=== PATIENT | female | born 1940 | race Caucasian/White ===

== ENCOUNTER 2024-10-19 20:05 | Emergency (ER) | payer MEDICARE, SELFPAY ==
--- NOTE | ~2024-10-19 | CT_ITS ---
EXAMINATION: CT brain wo con DATE: 10/19/2024 21:39 INDICATION: ams . TECHNIQUE: Computed tomography (CT) of the head was performed without intravenous contrast. The mA wa s adjusted according to patient size. Iterative reconstruction technique was employed. The dose-lengt h product was 681.00 mGy-cm. COMPARISON: None. FINDINGS: No acute intracranial hemorrhage or extra-axial fluid collection. No hydrocephalus, mass, or herniation. No acute ischemic infarct. Unremarkable dural venous sinus attenuation. No acute osseous abnormality. The aerated spaces are clear. Moderate atrophy and chronic white matter change. Atherosclerotic intracranial calcification. Bilater al lens replacements. Bilateral basal ganglia calcification. IMPRESSION: No acute intracranial process. Reviewed, dictated and finalized at location K. [facility]
[2024-10-19 20:19] VITALS: BP 140/90; PULSE 89; RESP 14; TEMP 36.8; O2SAT 96
--- NOTE | 2024-10-19 21:28 | ECG_ITS ---
Test Date: 2024-10-19 21:52:19 Measurements Intervals [place] Rate: 71 P: 146 [place]: 117 QRS: -15 QRSD: 78 T: -31 QT: 390 QTc: 424 Interpretive Statements SINUS RHYTHM WITH SHORT [place] INTERVAL POSSIBLE LEFT ATRIAL ENLARGEMENT [-0.1mV P-WAVE IN V1/V2] NONSPECIFIC T-WAVE ABNORMALITY No previous ECG available for comparison Electronically Signed On 10-20-2024 14:52:15 USED [employer] by Morris Mitchell M.D.
[2024-10-19 22:31] LABS: Basophils Percent Auto 0.4 % (0.2-1.2); Eosinophils Absolute Auto 0.1 K/mm3 (0-0.3); Eosinophils Percent Auto 0.7 % (0-4.4); Hematocrit 46.7 % (37.0-47.0); Hemoglobin 15.4 g/dL (12.0-15.0); Immature Granulocyte Absolute 0.02 K/mm3 (0.00-0.031); Immature Granulocyte Percent A 0.2 % (0-0.5); Lymphocytes Absolute Auto 1.52 K/mm3 (0.9-3.2); Lymphocytes Percent Auto 18.2 % (18.3-44.2); Mean Corpuscular Hemoglobin 30.7 pg (26-34); Mean Platelet Volume 8.9 fl (7.4-10.4); Monocytes Percent Auto 11.6 % (2.6-8.5); Neutrophils Absolute Auto 5.8 K/mm3 (1.3-6.7); Neutrophils Percent Auto 68.9 % (45.5-73.1); Platelet Count Result 283 k/mm3 (150-375); Red Blood Count 5.02 M/mm3 (4.2-5.4); Red Cell Distribution Width 13.3 % (11.5-14.5); White Blood Count 8.4 K/mm3 (4.5-10.0)
[2024-10-19 22:37] LABS: Add Urine Microscopic? YES; Appearance Urine Cloudy (Clear); Bacteria Urine Rare /hpf; Bilirubin Urine Negative (Negative); Blood Urine Negative (Negative); Color Urine Yellow (Yellow); Glucose Urine UA Negative (Negative); Ketones Urine Negative (Negative); Leukocyte Esterase Ur 2+ LEU/UL (Negative); Nitrate Urine Negative (Negative); Non Pathogenic Casts 0-2; Protein Urine Negative (Negative); RBC Urine 0-2 /hpf (0-2); Specific Grav Ur 1.015 (1.001-1.035); Squamous Epithelial Cell Urine Few /hpf (Few); Urobilinogen Urine 0.2 mg/dL (<2.0)
[2024-10-19 22:41] LABS: Alanine Aminotransferase 18 U/L (6-35); Albumin Level 4.8 g/dL (3.5-5.1); Alkaline Phosphatase 67 U/L (38-126); Anion Gap 7 mmol/L (4-12); Aspartate Amino Transferase 23 U/L (14-36); Bilirubin,Total 0.6 mg/dL (0.2-1.3); Blood Urea Nitrogen 16 mg/dL (7-17); Calcium 9.7 mg/dL (8.4-10.2); Carbon Dioxide 28 mmol/L (22-30); Chloride 104 mmol/L (98-107); Estimated CRCL calculation 40 ml/min; Estimated Glomerular Filt Rate > 60; Glucose 120 mg/dL (65-110); Magnesium 2.1 mg/dL (1.6-2.3); Sodium 139 mmol/L (137-145)
--- NOTE | 2024-10-19 23:30 | ED.GENADULT ---
HPI - General Adult General Chief complaint: Unspecified Stated complaint: insomnia, medication problem Time Seen by Provider: 10/19/24 21:28 Source: patient and family Mode of arrival: ambulatory Limitations: no limitations History of Present Illness HPI narrative: Patient is an 84-year-old female presents the ED with report of trouble sleeping. Patient reports she has not slept much in the 3 days. Has been feeling increasingly anxious. Son at bedside confirmed this. Had difficulty sleeping a few weeks ago which resolved on its own. Patient does report that the only change in her routine that she can think of has been that her prescription for nortriptyline was accidentally prescribed as 50 mg instead of 10 mg. She had been taking 50 mg dose over the last few weeks without knowing. She denies any pain, focal weakness or numbness, dizziness, lightheadedness, nausea, vomiting, fevers, cough or cold symptoms, urinary complaints, vision changes. Review of Systems Review of Systems: All systems reviewed & are unremarkable except as noted in HPI. All systems reviewed & are unremarkable except as noted in HPI and below Exam Narrative: GENERAL: Elderly but well-appearing, non-toxic, in no acute distress. HEAD: Normocephalic, atraumatic. RESPIRATORY: Airway patent, respirations nonlabored. Clear to auscultation bilaterally, no rales, rhonchi, wheezing. CARDIOVASCULAR: Regular rate and rhythm without murmurs, rubs, or gallops. ABDOMINAL: Soft, nontender, nondistended. Normoactive BS. MUSCULOSKELETAL: Moves all extremities. No gross deformities. SKIN: Warm, dry, normal color. NEURO: A&O X3. Speech clear. Cranial nerves II-XII grossly intact. Steady gait. No ataxic movements. Focal deficits. Moves all extremities equally. PSYCHIATRIC: Mildly anxious and jittery appearing, normal interaction. Course Vital Signs Vital signs: Vital Signs Temperature 98.2 F 10/19/24 20:19 Pulse Rate 89 10/19/24 20:19 Respiratory Rate 14 10/19/24 20:19 Blood Pressure 140/90 10/19/24 20:19 Pulse Oximetry 96 10/19/24 20:19 Oxygen Delivery Room Air 10/19/24 20:19 Temperature 98.2 F 10/19/24 20:19 Pulse Rate 89 10/19/24 20:19 Respiratory Rate 14 10/19/24 20:19 Blood Pressure 140/90 10/19/24 20:19 Pulse Oximetry 96 10/19/24 20:19 Oxygen Delivery Room Air 10/19/24 20:19 Medical Decision Making MDM Narrative Medical decision making narrative: Patient presented to ED with difficulty sleeping over the last few days. Recently has been taking an increased dose of her nortriptyline on accident. Has history of difficulty sleeping in the past. AMS workup was initiated. Vital signs are stable. Patient is in no acute distress. She is neurologically intact. She is able to provide all information. Son confirms information. She does not appear confused, however is slightly anxious. There is no focal deficits on exam. Laboratory studies are unremarkable. No leukocytosis or anemia. Stable electrolytes. Stable kidney function. Normal LFTs. Urine is consistent with infection with 2+ leuk esterase, 11-20 white blood cell count. Sent for culture. Will treat. This is likely contributing to patient's change in mental status. EKG is nonischemic. CT brain without acute findings. Discussed lab and imaging findings, overall reassuring workup with patient and son. Given dose of Rocephin in the ED. Will discharge on Keflex. Will also re-prescribe nortriptyline to correct dose as this may also have been contributing to symptoms/insomnia. Will give patient a small dose of Valium prior to discharge to help with sleep/anxiety. Also discussed [id number] therapies to try. Advised patient to have very close follow-up with PCP for further evaluation. Discussed strict return precautions. Patient and family are in agreement with plan. They feel comfortable discharge home. D/C in stable condition. Medical Records Medical records reviewed: Yes I reviewed the external patient's medical records. Vital Signs Vital Signs: Vital Signs Temperature 98.2 F 10/19/24 20:19 Pulse Rate 89 10/19/24 20:19 Respiratory Rate 14 10/19/24 20:19 Blood Pressure 140/90 10/19/24 20:19 Pulse Oximetry 96 10/19/24 20:19 Oxygen Delivery Room Air 10/19/24 20:19 Temperature 98.2 F 10/19/24 20:19 Pulse Rate 89 10/19/24 20:19 Respiratory Rate 14 10/19/24 20:19 Blood Pressure 140/90 10/19/24 20:19 Pulse Oximetry 96 12/09/24 20:19 Oxygen Delivery Room Air 10/19/24 20:19 Lab Data Lab results reviewed: Yes I reviewed the patient's lab results. 10/19/24 22:20 10/19/24 22:20 Labs: Lab Results 10/19/24 Range/Units 22:20 WBC 8.4 (4.5-10.0) K/mm3 RBC 5.02 (4.2-5.4) M/mm3 Hgb 15.4 H (12.0-15.0) g/dL Hct 46.7 (37.0-47.0) % MCV 93.0 (80-100) fl MCH 30.7 (26-34) pg MCHC 33.0 (32-36) g/dl RDW 13.3 (11.5-14.5) % Plt Count 283 (150-375) k/mm3 MPV 8.9 (7.4-10.4) fl Immature Gran % (Auto) 0.2 (0-0.5) % Neut % (Auto) 68.9 (45.5-73.1) % Lymph % (Auto) 18.2 L (18.3-44.2) % [place] % (Auto) 11.6 H (2.6-8.5) % Eos % (Auto) 0.7 (0-4.4) % Baso % (Auto) 0.4 (0.2-1.2) % Lymph # (Auto) 1.52 (0.9-3.2) K/mm3 [place] # (Auto) 1.0 H (0.1-0.6) K/mm3 Eos # (Auto) 0.1 (0-0.3) K/mm3 Baso # (Auto) 0.0 (0.0-0.1) K/mm3 Abs Immat Gran (auto) 0.02 (0.00-0.031) K/mm3 Absolute Neuts (auto) 5.8 (1.3-6.7) K/mm3 Absolute Nucleated RBC 0.000 (0.0-0.012) K/mm3 Nucleated RBC % 0.0 (0.0-0.2) % Sodium 139 (137-145) mmol/L Potassium 4.0 (3.4-5.0) mmol/L Chloride 104 (98-107) mmol/L Carbon Dioxide 28 (22-30) mmol/L Anion Gap 7 (4-12) mmol/L BUN 16 (7-17) mg/dL Creatinine 0.70 (0.7-1.0) mg/dL Estim Creat Clear Calc 40 ml/min Estimated GFR > 60 (59 - ) Glucose 120 H (65-110) mg/dL Calcium 9.7 (8.4-10.2) mg/dL Magnesium 2.1 (1.6-2.3) mg/dL Total Bilirubin 0.6 (0.2-1.3) mg/dL AST 23 (14-36) U/L ALT 18 (6-35) U/L Alkaline Phosphatase 67 (38-126) U/L Total Protein 8.0 (6.3-8.2) g/dL Albumin 4.8 (3.5-5.1) g/dL Urine Color Yellow (Yellow) Urine Appearance Cloudy H (Clear) Urine pH 6.0 (5.0-9.0) Ur Specific [place] 1.015 (1.001-1.035) Urine Protein Negative (Negative) mg/dL Urine Glucose (UA) Negative (Negative) mg/dL Urine Ketones Negative (Negative) mg/dL Ur Blood (Man) Negative (Negative) Urine Nitrate Negative (Negative) Urine Bilirubin Negative (Negative) Urine Urobilinogen 0.2 (<2.0) mg/dL Leukocyte Esterase Rfl 2+ H (Negative) KELSIE/UL Urine RBC 0-2 (0-2) /hpf Urine WBC 11-20 H (0-3) /hpf Ur Squamous Epith Cells Few (Few) /hpf Urine Bacteria Rare /hpf Urine Casts 0-2 Imaging Data Attestation: I personally reviewed and interpreted this imaging study as follows: Radiologist's impression: ITS Impressions Head CT 10/19/24 21:44 IMPRESSION: No acute intracranial process. ECG Data EKG #1: Attestation: I personally reviewed and interpreted this ECG as follows: ECG completion date: 10/19/24 ECG completion time: 21:52 EKG Interpretation: normal rate (71), sinus rhythm, non-specific ST changes and other (short HI, some baseline artifact) Discharge Plan Discharge Clinical Impression: Trouble in sleeping Urinary tract infection Qualifiers: Urinary tract infection type: acute cystitis Hematuria presence: without hematuria Qualified Code(s): N30.00 - Acute cystitis without hematuria Patient Disposition: Home, Self-Care Condition: Stable Instructions: Antibiotic Form, Insomnia (ED), Urinary Tract Infection in Older Adults (ED) Additional Instructions: You were diagnosed with a urinary tract infection today. Take antibiotics as prescribed. Stay well hydrated. Recommend close follow-up with primary care doctor for further evaluation. Call office tomorrow to make follow up appointment. Discontinue Nortriptyline at 50mg dose. Resume taking 10mg dose as previously prescribed. You may try melatonin as needed for assistance with sleeping. Return to the ED if you experience worsening or severe symptoms, unable to keep down food or drink, persistent fevers, confusion, numbness or weakness in arm or leg, severe dizziness, chest pain, difficulty breathing, or any other symptoms of concern. Prescriptions: New cephalexin 500 mg capsule 500 mg PO Q6H 7 Days Qty: 28 0RF nortriptyline 10 mg capsule 10 mg PO DAILY Qty: 30 0RF Follow-up/Referrals: Latha,Nicolás White MD [Primary Care Provider] - Time of Disposition: 00:02
[2024-10-19] MEDS: Please add drug allergy info to patient profile. 1 EACH XX (23:42)
[2024-10-20] MEDS: diazePAM (*CRX) 2 MG TABLET PO (00:12)
[2024-10-20 00:17] VITALS: BP 114/61; PULSE 84; RESP 15; O2SAT 97
== END 2024-10-20 00:18 | disposition home or self-care (01) ==
PROVIDERS: Emergency Provider Physician Assistant; PCP Internal Medicine
DX: G47.00 Insomnia, unspecified (principal); N30.00 Acute cystitis without hematuria
CPT/HCPCS: 36415; 70450; 80053; 81001; 83735; 85025; 87086; 93005; 96365; 96375; 99284; A9270; J0696

== ENCOUNTER 2025-06-05 12:08 | Outpatient (CLI) | payer MEDICARE, SELFPAY ==
--- NOTE | ~2025-06-05 | CT_ITS ---
CT of the Abdomen and Pelvis: Indication: Hematuria Technique: 2.5 mm axial scans were obtained through the abdomen and pelvis prior to and following in travenous administration of 130 cc of Omnipaque 350. Dose reduction technique was used on this scan b y utilizing automated exposure control and iterative reconstruction technique. The dose-length produc t (DLP) was 708.30 mGy-cm. Findings: Scans through the lung bases demonstrate marked elevation of left hemidiaphragm versus lar ge diaphragmatic hernia. Small pericardial effusion present. Multiple hepatic cysts are present. There is mild dilatation of the main pancreatic neck which may be due to distortion of the pancreatic anatomy related to the large hiatal hernia/diaphragmatic elevati on. The spleen, gallbladder, adrenal glands are within normal limits. No evidence of aortic aneurysm . No lymphadenopathy. There is moderate left hydronephrosis with tapering at the UPJ region. There is mild right hydronephr osis with tapering at the UPJ region. There are probable parapelvic renal cysts bilaterally. No bowel obstruction or bowel wall thickening. There is no evidence to suggest acute appendicitis. Images through the pelvis were performed. Small amount of air present in the urinary bladder. 4.3 x 3 .5 cm left adnexal cyst present. No ascites. Impression: Moderate left hydronephrosis and mild right hydronephrosis, with tapering at the bilateral UPJ region s. 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 Bilatera l parapelvic renal cysts are also present. Small amount of air in urinary bladder, most likely related to recent instrumentation. Correlate clin ically. 4.3 x 3.5 cm left adnexal cyst. Marked elevation of left hemidiaphragm versus large left diaphragmatic hernia. Reviewed, dictated and finalized at location . Impression: Moderate left hydronephrosis and mild right hydronephrosis, with tapering at th e bilateral UPJ regions. 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 Bilateral parapelvic renal cysts are also p resent. Small amount of air in urinary bladder, most likely related to recent instrumen tation. Correlate clinically. 4.3 x 3.5 cm left adnexal cyst. Marked elevation of left hemidiaphragm versus large left diaphragmatic hernia.
--- OUTSIDE RECORDS SUMMARY | 2025-06-05 12:11 | XMS_ITS | Data Portability ---
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 Doing well. No post operative concerns. [email or web address] Not available 03/02/2025 17:48:45 04/08/2025 04/08/2025 I have reconciled the patient's medications post their discharge from inpatient facility. [email or web address] Not available 04/08/2025 14:14:15 Plan of Treatment Reminders Order Date Submit Date Provider Last Modified By Organization Details Last Modified Time Details Appointments Any 15 2024 03:15P M Arie Azul MD Not available Not available Not available Lab urinaly sis, dipstic k 2024 025 [email or web address] [facility] [address], [facility] [place], [address], 03/19/2025 16:28:51 urinaly sis complet e, reflex culture 2024 025 [facility], [address] [place] [address], [id number], 03/20/2025 11:31:09 Referral psychia trist referra l - Please call patient to yuniel chen appoint ment. Thank you. 2024 025 [email or web address] [facility], [address] [facility], [address], [place], [address], 05/04/2025 12:20:44 Procedures None recorde d. Surgeries None recorde d. Imaging XR, chest, 2 view 2024 [facility] (Radiology), [address] [facility], [place], [address], 02/05/2025 18:35:51 Medication Orders ramelte on 8 mg tablet 2024 025 [facility], [address] [place] [address], [id number], 05/05/2025 16:42:33 Macrobi d 100 mg capsule 2024 025 [facility], [address] [place] [address], [id number], 04/06/2025 10:24:00 Patient TargetsNo targets recorded. Patient Instructions Encounter Date Encounter Id Patient Instructions Last Modified By Organization Details Last Modified Time 03/19/2025 [id number] Increase water intake. Make sure to keep clean and dry. Change depends regularly. Always wipe front to back when using the restroom. [email or web address] Not available 03/19/2025 16:42:25 04/08/2025 [id number] Follow up appointment needed for hiatal hernia with Dr. Lombardo's team. (DC paperwork) Follow up post appointment must be made per discharge instructions. Discussed and given note in office as reminder. Reminder of follow up phone call scheduled April 24 at 2pm- reminder also given to patient/daughter on note. (DC paperwork) Discussed home health referral. Advised the importance of strength and exercise after hospital stay and for future ADLs. Patient refusal of services from home health as advised. Patient medications discussed with both daughters in office. Medications list updated to current regimen. Discussed healthy diet options and care. All questions and concerns addressed at this time. Thank you for your visit to our office today. We would like to request that you reach out to your referring or previous provider and request that they send us a Summary of Care in electronic form, so that we may have it on file in your medical record. At your visit, we had the medical records we needed to provide you with the best possible care; however, for insurance purposes, an electronic Summary of Care is beneficial. Thank you for your assistance in obtaining this information and we look forward to providing continued care to you. Please review your medication list from the Summary of Care for this visit. If there are any differences from what you are currently taking at home, please call us to discuss. [email or web address] Not available 04/09/2025 11:03:55 Homebound Status : Does not meet homebound status Required Home Health Services: none Durable Medical Equipment needed: NONE Billing Guidelines CPT code 34588- Transitional Care Management services with moderate medical decision complexity ([id number]-az-upii visit within 14 days of discharge). CPT code 91103- Transitional Care Management services with high medical decision complexity (uzbd-sq-fuwl visit within 7 days of discharge). [email or web address] Not available 04/09/2025 11:04:13 Reason for Referral Psychiatrist Referral for An xiety Please call patient to schedule an appointment. Thank you. Referring Physician: Arie Azul, Internal Medicine, Encounter Date: 02/02/2025 Results Created Date Observation Date Name Description Value Unit Range Abnormal Flag Note LastModifiedBy Organization Detail LastModifiedTime 03/19/20 25 03/19/2025 urina lysis , dipst ick Leukocytes (reference range: negative froylan/ l) Negati ve Not Available [facility] Internal [address] [facility] [place], [address], 03/19/2025 15:46:33 03/19/20 25 03/19/2025 urina lysis , dipst ick Nitrite (reference rage: negative mg/dl) negati ve Not Available [facility] Internal [facility] [address] [place], [address], 03/19/2025 15:46:33 03/19/20 25 03/19/2025 urina lysis , dipst ick Urobilinogen (reference range: 0.2-1 mg/dl) 0.2 Not Available [facility] [address] [place], [address], 03/19/2025 15:46:33 03/19/20 25 03/19/2025 urina lysis , dipst ick Protein (reference range: negative mg/dl) Trace Not Available [place] [address] [place], [address], 03/19/2025 15:46:33 03/19/20 25 03/19/2025 urina lysis , dipst ick pH (reference range: 5-7) 5.5 Not Available [place] [address] [place], [address], 03/19/2025 15:46:33 03/19/20 25 03/19/2025 urina lysis , dipst ick Blood (reference range: negative Zack/ l) Negati ve Not Available [address] [place], [address], 03/19/2025 15:46:33 03/19/20 25 03/19/2025 urina lysis , dipst ick Specific [place] (reference range: 1.005-1.030) 1.025 Not Available [place] [address] [place], [address], 03/19/2025 15:46:33 03/19/20 25 03/19/2025 urina lysis , dipst ick Ketone (reference range: negative mg/dl) Trace Not Available [place] [address] [place], [address], 03/19/2025 15:46:33 03/19/20 25 03/19/2025 urina lysis , dipst ick Bilirubin (reference range: negative mg/dl) Trace Not Available [facility] Internal [facility] [address] [place], [address], 03/19/2025 15:46:33 03/19/20 25 03/19/2025 urina lysis , dipst ick Glucose (reference range: negative mg/dl) Negati ve Not Available [facility] Internal [facility] [address] [place], [address], 03/19/2025 15:46:33 03/19/20 25 03/19/2025 urina lysis , dipst ick Appearance Cloudy Not Available [facility] [address] [place], [address], 03/19/2025 15:46:33 03/19/20 25 03/19/2025 urina lysis , dipst ick Color Yellow Not Available [facility] [address] [place], [address], 03/19/2025 15:46:33 02/06/20 25 02/05/2025 XR, chest , 2 view [facility] [address] [place] [address] Patien t Name: AILEEN EAST Access ion #: [id number] Sex: F : 1939 9 Dictat ed By: Simon kaur Attend ing Physic katarzyna: GARCÍA AZUL Orderi Physic katarzyna: GARCÍA AZUL ER Exam Date: 2024 16:54 PM Exam Name: XR CHEST 2V Admitt ing Diagno sis(es ): EXAM: XR CHEST 2V HISTOR Y: dyspne a, histor y of hiatal hernia COMPAR PATRICK: Upper images of CT scan of the abdome n dated 2021 TECHNI QUE: Fronta l and latera l views of the chest were perfor med. FINDIN GS: Large left diaphr agmati c hernia is re-ulises ntifie d, with loops of gas disten ded colon projec ting over the left lower chest. There is associ ated rightw bo shift of the heart and medias tinum, stable versus prior CT scan. There is associ ated left mid to lower lung scarri ng. No other infilt rates, pneumo thorax , pulmon addis edema, or pleura l effusi ons. The heart is not enlarg ed. No fractu res are identi fied about the bony thorax . IMPRES WILFRIDO: 1. Large left diaphr agmati c hernia with loops of colon in the left lower chest, left mid to lower lung scarri ng, and associ ated rightw bo shift of the heart and medias tinum. These findin gs are very simila r to that seen on CT scan dated 2021. 2. The right lung is clear. Electr onical ly Signed by: Simon kaur at 2024 17:33: 25 PM Page 1 [email or web address] [facility] (Imaging) [address] [place], [address], 02/09/2025 15:46:36 04/28/20 25 04/27/2025 compl ete PFT w/ post [facility] hodil ator dre metry * No observ ation record ed. BARCODE Not Available 2024 12:45:03 Result Notes Documentation Provider Name and Address Organization Details Recorded Time Xr, Chest, 2 View : [facility] [address] [place] [address] Patient Name: AILEEN EAST Sex: F : 1940 Dictated By: Simon Simmons Attending Physician: ARIE AZUL Ordering Physician: ARIE AZUL Exam Date: 02/05/2025 16:54 PM Exam Name: XR CHEST 2V Admitting Diagnosis(es): EXAM: XR CHEST 2V HISTORY: dyspnea, history of hiatal hernia COMPARISON: Upper images of CT scan of the abdomen dated 12/03/2021 TECHNIQUE: Frontal and lateral views of the chest were performed. FINDINGS: Large left diaphragmatic hernia is re-identified, with loops of gas distended colon projecting over the left lower chest. There is associated rightward shift of the heart and mediastinum, stable versus prior CT scan. There is associated left mid to lower lung scarring. No other infiltrates, pneumothorax, pulmonary edema, or pleural effusions. The heart is not enlarged. No fractures are identified about the bony thorax. IMPRESSION: 1. Large left diaphragmatic hernia with loops of colon in the left lower chest, left mid to lower lung scarring, and associated rightward shift of the heart and mediastinum. These findings are very similar to that seen on CT scan dated 12/03/2021. 2. The right lung is clear. Page 1 KADEN Newberry, [employer] 02/09/2025 15:46:36 Problems Name Problem SNOMED Code Status Onset Date Resolution Date Notes Provider Name and Address Organization Details Recorded Time Menopausal and postmenopa usal disorders 585304333 Active 2017 Not Available [facility] 3 04:53:14 Hyperlipid emia 25276829 Active 2017 Not Available [facility] 3 04:53:15 Essential hypertensi on 78298048 Active 2017 Not Available [facility] 3 04:53:15 Insomnia 199164355 Active 2018 Arie Azul MD [address] [place] [address], [address] , [employer] 5 16:41:10 Anxiety 86711635 Active 2018 Not Available [facility] 3 04:53:15 Prediabete s 369091417 Active 2018 Not Available [facility] 3 04:53:15 Palpitatio ns 54421306 Active 2018 Not Available [facility] 3 04:53:15 Delayed gastric emptying 815692790 Completed 201805/02/2022 Not Available [facility] 3 04:53:14 Memory impairment 464682541 Active 2018 Not Available [facility] 3 04:53:14 Hiatal hernia 37981992 Active 2018 VALERIA Cheung [address], [place], [address] , [facility] [employer] [facility] 5 14:17:40 Hyperglyce brett 69106712 Active 2018 Not Available [facility] 3 04:53:16 Depressive disorder 20728834 Active 2020 Not Available [facility] 3 04:53:14 Gastritis 6157273 Active 2020 Not Available [facility] 3 04:53:15 Hypokalemi a 81204529 Active 2020 Not Available [facility] 3 04:53:15 Vitamin D deficiency 36852003 Active 2021 Not Available [facility] 3 04:53:14 Administra tion of influenza vaccine Completed 202105/02/2022 Not Available [facility] 3 04:53:16 Irritable bowel syndrome 60907335 Active 2024 Arie Azul MD [address], [address], [place], [address] , [facility] [employer] [facility] 5 10:38:14 Hyperlipop roteinemia 8064991 Active 2024 Sil Parks MA null, [facility] [employer] [facility] 5 14:21:28 Severe chronic obstructiv e pulmonary disease 964011238 Active 2024 Dinesh Carrasco MD [address], [place], [address] , [facility] [employer] [facility] 5 15:11:57 Abnormal weight loss 290168179 Active 2024 Natalie Stephenson null, [facility] [employer] [facility] 5 16:14:52 Problem Notes None recorded. Procedures Surgical History Date Name Laterality Status Provider Name and Address Organization Details Recorded Time 04/08/20 Transitional_Car e_Management completed VALERIA Cheung [address] [facility], [address], [place], [address], [employer] 04/08/2025 16:28:19 06/15/20 24 Medicare Wellness CPT Code, subsequent completed Mayra Hernandez RN [place] [employer] 06/15/2024 10:41:33 09/09/20 23 Medicare Wellness CPT Code, subsequent completed Paz Gooden CMA [employer] 09/09/2023 14:18:51 05/07/20 23 Medicare Wellness CPT Code, subsequent completed Delmy Pepper RN [place] [employer] [facility] 05/07/2023 10:23:35 partial hysterectomy completed Not Available [facility] 01/09/2023 04:43:09 other completed Not Available [facility] 11/2022 04:43:09 [employer]IT[employer] Surgery completed Not Available [facility] 01/09/2023 04:43:09 Imaging Results None recorded. Procedure Notes None recorded. Medical Equipment None Reported. Allergies No known drug allergies Medications Name Sig Start Date Stop Date Status Note LastModified by Organization Details LastModified Time methocarb jeremy 500 mg tablet TAKE 1 TABLET BY MOUTH THREE TIMES DAILY 04/08 completed Not Available Not Available Not Available buspirone 5 mg tablet TAKE 1 TABLET BY MOUTH TWICE DAILY 05/05 completed Not Available Not Available Not Available venlafaxi ne ER 37.5 mg capsule,e xtended release 24 hr 09/30 completed Not Available Not Available Not Available carvedilo l 6.25 mg tablet Take 1 tablet twice a day by oral route for 90 days. 10/24 completed Not Available Not Available Not Available venlafaxi ne ER 75 mg capsule,e xtended release 24 hr TAKE 1 CAPSULE BY MOUTH ONCE DAILY IN THE MORNING FOR 30 DAYS 08/16 completed Not Available Not Available Not Available atorvasta tin 20 mg tablet TAKE 1 TABLET BY MOUTH ONCE DAILY active Not Available Not Available No t Available carvedilo l 12.5 mg tablet TAKE 1 TABLET BY MOUTH TWICE DAILY 04/08 completed stopped in hospital - Not Available Not Available Not Available loperamid e 2 mg capsule TAKE 1 CAPSULE BY MOUTH TWICE DAILY NEEDED FOR DIARRHEA active Not Available Not Available No t Available trazodone 50 mg tablet take 1-2 tablets by mouth nightly as needed for sleep 12/01 completed ok per 10/28/24 patient case / ds Not Available Not Available Not Available atorvasta tin 10 mg tablet TAKE 1 TABLET BY MOUTH ONCE DAILY 04/08 completed dosage was increase d at hospital Not Available Not Available Not Available hydrocodo ne 5 mg-acetam inophen 325 mg tablet TAKE 2 TABLETS BY MOUTH EVERY 6 HOURS NEEDED FOR PAIN SEVERE (7-10 ON SCALE) 04/08 completed Not Available Not Available Not Available sertralin e 100 mg tablet TAKE 1 TABLET BY MOUTH ONCE DAILY active Not Available Not Available No t Available venlafaxi ne ER 150 mg capsule,e xtended release 24 hr 03/08 completed Not Available Not Available Not Available thiamine HCl (vitamin B1) 100 mg tablet TAKE 1 TABLET BY MOUTH ONCE DAILY FOR 5 DOSES 05/05 completed Not Available Not Available Not Available potassium chloride ER 10 mEq tablet,ex tended release TAKE 1 TABLET BY MOUTH ONCE DAILY 04/08 completed stopped in hospital Not Available Not Available Not Available metronida zole 500 mg tablet TAKE 1 TABLET BY MOUTH EVERY 8 HOURS 12/27 completed Not Available Not Available Not Available hydroxyzi ne HCl 50 mg tablet TAKE 1 TABLET BY MOUTH ONCE DAILY IN THE MORNING AND 2 ONCE DAILY IN THE EVENING 04/08 completed stopped in hospital Not Available Not Available Not Available ciproflox acin 250 mg tablet TAKE 1 TABLET BY MOUTH EVERY 12 HOURS 12/27 completed Not Available Not Available Not Available sulfameth oxazole 800 mg-trimet hoprim 160 mg tablet active Not Available Not Available Not Available peg-elect rolyte solution 420 gram oral solution DRINK ONE HALF AT 5PM ON 07 26 THEN DRINK ONE HALF AT 5AM ON 07 27 active Not Available Not Available No t Available aspirin 81 mg tablet,de layed release TAKE 1 BY MOUTH ONCE DAILY active Not Available Not Available No t Available nortripty line 25 mg capsule TAKE 1 CAPSULE BY MOUTH ONCE DAILY IN THE EVENING 10/28 completed per daughter Jennifer on 10/28/24 Not Available Not Available Not Available oxycodone -acetamin ophen 5 mg-325 mg tablet 05/29 completed Not Available Not Available Not Available alprazola m 0.25 mg tablet TK 1 T PO Q 8 H PRN 06/10 completed Not Available Not Available Not Available lorazepam 0.5 mg tablet Take 1 tablet every day by oral route as needed. 12/01 completed Not Available Not Available Not Available metoclopr amide 5 mg tablet TAKE 1 TABLET BY MOUTH THREE TIMES DAILY BEFORE MEAL(S) active Not Available Not Available No t Available amlodipin e 10 mg tablet TAKE 1 TABLET BY MOUTH ONCE DAILY active Not Available Not Available No t Available cephalexi n 500 mg capsule TAKE 1 CAPSULE BY MOUTH EVERY 6 HOURS FOR 7 DAYS 02/23 completed Not Available Not Available Not Available simvastat in 20 mg tablet TAKE 1 TABLET BY MOUTH ONCE DAILY 02/25 completed now taking atorvast atin per recent hospital stay / ds Not Available Not Available Not Available nortripty line 10 mg capsule TAKE 1 CAPSULE BY MOUTH ONCE DAILY 04/08 completed Not Available Not Available Not Available mirtazapi ne 30 mg tablet TAKE 1 TABLET BY MOUTH ONCE DAILY AT BEDTIME FOR 30 DAYS active Not Available Not Available No t Available esomepraz ole magnesium 40 mg capsule,d elayed release Take 1 capsule by mouth once daily 05/05 completed as needed Not Available Not Available Not Available buspirone 10 mg tablet TAKE 1 TABLET BY MOUTH TWICE DAILY NEEDED active Not Available Not Available No t Available sertralin e 25 mg tablet TAKE 1 TABLET BY MOUTH ONCE DAILY IN THE MORNING FOR 30 DAYS active Not Available Not Available No t Available mirtazapi ne 45 mg tablet TAKE 1 TABLET BY MOUTH ONCE DAILY NEEDED 09/30 completed Not Available Not Available Not Available irbesarta n 75 mg tablet Take 2 tablets every day by oral route. 05/22 completed Not Available Not Available Not Available folic acid 1 mg tablet TAKE 1 TABLET BY MOUTH ONCE DAILY active Not Available Not Available No t Available hydrochlo rothiazid e 25 mg tablet TAKE 1 TABLET BY MOUTH ONCE DAILY 05/05 completed Not Available Not Available Not Available pyridoxin e (vitamin B6) 100 mg tablet TAKE 1 TABLET BY MOUTH ONCE DAILY FOR 3 DOSES 04/08 completed no longer taking per patient Not Available Not Available Not Available mirtazapi ne 15 mg tablet TAKE 1 TABLET BY MOUTH ONCE DAILY AT BEDTIME FOR 30 DAYS active Not Available Not Available No t Available irbesarta n 150 mg tablet TAKE 1 TABLET BY MOUTH ONCE DAILY active Not Available Not Available No t Available estradiol 0.01% (0.1 mg/gram) vaginal cream INSERT 1 GRAM VAGINALL Y THREE TIMES A WEEK active Not Available Not Available No t Available Lomotil 2.5 mg-0.025 mg tablet Take 1 tablet 3 times a day by oral route as needed. active Not Available Not Available No t Available lisinopri l 40 mg tablet 05/29 completed Not Available Not Available Not Available ondansetr on 4 mg disintegr ating tablet DISSOLVE 1 TABLET IN MOUTH EVERY 4 HOURS NEEDED active Not Available Not Available No t Available losartan 100 mg tablet TAKE 1 TABLET BY MOUTH ONCE DAILY 02/13 completed Not Available Not Available Not Available sertralin e 50 mg tablet TAKE 1 TABLET BY MOUTH ONCE DAILY AT BEDTIME active Not Available Not Available No t Available irbesarta n 300 mg tablet TAKE 1 2 (ONE HALF) TABLET BY MOUTH ONCE DAILY active Not Available Not Available No t Available amoxicill in 875 mg-potass ium clavulana te 125 mg tablet TAKE 1 TABLET BY MOUTH TWICE DAILY 04/06 completed Not Available Not Available Not Available valsartan 160 mg tablet Take 1 tablet twice a day by oral route for 90 days. 10/24 completed Not Available Not Available Not Available olmesarta n 40 mg tablet Take 1 tablet every day by oral route. 02/06 completed Not Available Not Available Not Available Pain Reliever (acetamin ophen) 500 mg tablet TAKE 2 TABLETS BY MOUTH EVERY 6 HOURS active Not Available Not Available No t Available nitrofura ntoin monohydra te/macroc rystals 100 mg capsule TAKE 1 CAPSULE BY MOUTH EVERY 12 HOURS FOR 5 DAYS 04/06 completed Not Available Not Available Not Available Boostrix Tdap 2.5 Lf unit-8 mcg-5 Lf/0.5 mL intramusc ular syringe 05/29 completed Not Available Not Available Not Available ramelteon 8 mg tablet TAKE 1 TABLET BY MOUTH ONCE DAILY NEEDED active Not Available Not Available No t Available GaviLyte- G 236 gram-22.7 4 gram-6.74 gram-5.86 gram oral solution 05/29 completed Not Available Not Available Not Available Virtussin AC 10 mg-100 mg/5 mL oral liquid 05/29 completed Not Available Not Available Not Available Vitals Date Recorded Body height Body mass index (BMI) Body weight Body temperature Heart rate Oxygen saturation Oxygen saturation in Arterial blood by Pulse oximetry Systolic And Diastolic Provider Name and Address Organization Details Last Updated DateTime 5 152.4 cm 20.3 kg/m2 79980.6 1 g 97.6 [degF] 64 /min 96 % 96 % 100/60 mm[Hg] Barbara chen [facility] [employer] [facility] 5 16:01:40 Date Recorded Body temperature Respiratory rate Provid er Name and Address Organization Details Last Updated DateTime 03/02/2025 97.8 [degF] 14 /min Silvina Blake [place] [employer] [facility] 03/02/2025 11:53:58 Date Recorded Body height Body mass index (BMI) Body weight Heart rate Oxygen saturation Oxygen saturation in Arterial blood by Pulse oximetry Systolic And Diastolic Provider Name and Address Organization Details Last Updated DateTime 5 152.4 cm 20.3 kg/m2 33333.6 1 g 62 /min 97 % 97 % 102/62 mm[Hg] Jayna Coffey, [facility] [employer] [facility] 5 11:43:44 Date Recorded Body height Body mass index (BMI) Body weight Heart rate Body temperature Oxygen saturation Oxygen saturation in Arterial blood by Pulse oximetry Systolic And Diastolic Provider Name and Address Organization Details Last Updated DateTime 5 152.4 cm 18.9 kg/m2 72572.4 6 g 59 /min 97.2 [degF] 95 % 95 % 108/56 mm[Hg] Natalie hughes [place] [employer] [facility] [facility] 5 15:37:57 Date Recorded Body height Body mass index (BMI) Body weight Body temperature Heart rate Oxygen saturation Oxygen saturation in Arterial blood by Pulse oximetry Systolic And Diastolic Provider Name and Address Organization Details Last Updated DateTime 5 152.4 cm 19.5 kg/m2 77127.2 4 g 97 [degF] 85 /min 96 % 96 % 130/70 mm[Hg] Barbaraperry Aldana april, [facility] [employer] 5 14:05:32 Date Recorded Body height Oxygen saturation Oxygen saturation in Arterial blood by Pulse oximetry Heart rate Body temperature Body mass index (BMI) Body weight Systolic And Diastolic Provider Name and Address Organization Details Last Updated DateTime 5 152.4 cm 96 % 96 % 76 /min 97.3 [degF] 18.6 kg/m2 89000.2 8 g 90/67 mm[Hg] Natalie Chante hughes [employer] 5 16:22:31 Social History Question Answer Notes LastModified by Organization Details LastModified Time Tobacco Smoking Status Never Smoker Not Available [facility] 01/09/2023 04:36:24 Do You Have An Advance Directive? Yes [id number] Information not available 01/09/2023 Are You Blind Or Do You Have Difficulty Seeing? No Beginnings Of Macular Degeneration [email or web address] Information not available 06/15/2024 Is Blood Transfusion Acceptable In An Emergency? Yes [email or web address] Information not available 06/15/2024 What Is Your Level Of Caffeine Consumption? Occasional MIGRATION.0301 [id number] Information not available 01/09/2023 How Much Tobacco Do You Chew? None MIGRATION.0301 [id number] Information not available 01/09/2023 What Is Your Code Status? Other [email or web address] Information not available 06/15/2024 Are You Deaf Or Do You Have Serious Difficulty Hearing? No MIGRATION.0301 [id number] Information not available 01/09/2023 What Type Of Diet Are You Following? DIABETIC Tries To Watch Sugar Intake And Wants Info On Carb Monitoring [email or web address] Information not available 06/15/2024 Which Illicit Or Recreational Drugs Have You Used? None MIGRATION.0301 [id number] Information not available 01/09/2023 What Is The Highest Grade Or Level Of School You Have Completed Or The Highest Degree You Have Received? IS08800-3 [email or web address] Information not available 06/15/2024 How Many Days Of Moderate To Strenuous Exercise, Like A Brisk Walk, Did You Do In The Last 7 Days? 0 [email or web address] Information not available 06/15/2024 Have There Been Any Changes To Your Family Or Social Situation? Yes Son Moved Back In With Large Dog [email or web address] Information not available 06/15/2024 What Is The Fluoride Status Of Your Home? Fluoridated [email or web address] Information not available 06/15/2024 Are There Any Guns Present In Your Home? No MIGRATION.0301 [id number] Information not available 01/09/2023 Do You Use Insect Repellent Routinely? Yes [email or web address] Information not available 06/15/2024 Where Do You Live? SingleLevelHouse MIGRATION.0301 [id number] Information not available 01/09/2023 Presence Of Domestic Violence No [email or web address] Information not available 05/07/2023 Guns Present In The Home? No [email or web address] Information not available 06/15/2024 Are You Able To Care For Yourself? Yes [email or web address] Information not available 05/07/2023 Are You Blind Or Do Yo Have Difficulty Seeing? No Information not available 05/07/2023 Are You Deaf Or Do You Have Serious Difficulty Hearing? No [email or web address] Information not available 05/07/2023 General Stress Level? Low [email or web address] Information not available 05/07/2023 Live Alone Of With Others? With Others [email or web address] Information not available 05/07/2023 Are You Following A Low Salt Diet? No [email or web address] Information not available 06/15/2024 Do You Have A Medical Power Of Asphalt Tile Floor Layer? Yes MIGRATION.0301 [id number] Information not available 01/09/2023 What Was The Date Of Your Most Recent Tobacco Screening? 06/15/2024 [email or web address] Information not available 06/15/2024 How Many Children Do You Have? 3 [email or web address] Information not available 06/15/2024 Do You Have Any Pets? Yes Son's Dog [email or web address] Information not available 06/15/2024 What Is Your Relationship Status? [email or web address] Information not available 06/15/2024 Do You Use Your Seat Belt Or Car Seat Routinely? Yes MIGRATION.0301 [id number] Information not available 01/09/2023 Are You Sexually Active? No [email or web address] Information not available 06/15/2024 Do You Have Smoke And Carbon Monoxide Detectors In Your Home? Yes MIGRATION.0301 317405 Information not available 01/09/2023 Are You Passively Exposed To Smoke? No MIGRATION.0301 [id number] Information not available 01/09/2023 Are There Any Smokers In Your House? No MIGRATION.0301 359729 Information not available 01/09/2023 What Types Of Sporting Activities Do You Participate In? None [email or web address] Information not available 06/15/2024 Do You Use Sunscreen Routinely? Yes [email or web address] Information not available 06/15/2024 Has Tobacco Cessation Counseling Been Provided? No [email or web address] Information not available 06/15/2024 Have You Recently Traveled Abroad? No [email or web address] Information not available 06/15/2024 Do You Have Difficulty Walking Or Climbing Stairs? No MIGRATION.0301 837809 Information not available 01/09/2023 Do You Have Any Dietary Restrictions? Yes [email or web address] Information not available 06/15/2024 Sex: Female Functional Status Question Answer Note LastModified by Organizat ion Details LastModified Time Do you or have you ever used smokeless tobacco? Never used smokeless tobacco MIGRATION.009970 8345 Information not available 01/09/2023 Are you currently employed? No [email or web address] Information not available 06/15/2024 Do you have transportation difficulties? No MIGRATION.424021 7237 Information not available 01/09/2023 Are you able to care for yourself independently? Yes MIGRATION.647535 8612 Information not available 01/09/2023 Do you have difficulty dressing, bathing, grooming, or toileting? No MIGRATION.500320 7356 Information not available 01/09/2023 Do you or have you ever used e-cigarettes or vape? Never used electronic cigarettes MIGRATION.367263 4544 Information not available 01/09/2023 What is your exercise level? None [email or web address] Information not available 06/15/2024 Do you use any illicit or recreational drugs? No [email or web address] Information not available 06/15/2024 Do you or have you ever used any other forms of tobacco or nicotine? No [email or web address] Information not available 06/15/2024 What is your level of alcohol consumption? None MIGRATION.336545 2851 Information not available 01/09/2023 Are you able to walk? YESWOREST MIGRATION.423019 3726 Information not available 01/09/2023 Do you have difficulty doing errands alone? No MIGRATION.029118 5977 Information not available 01/09/2023 What is your occupation? Retired MIGRATION.431879 2359 Information not available 01/09/2023 Mental Status Question Answer Note LastModified by Organizat ion Details LastModified Time Do you feel stressed (tense, restless, nervous, or anxious, or unable to sleep at night)? [id number] [email or web address] Information not available 06/15/2024 Do you have difficulty concentrating, remembering or making decisions? No MIGRATION.[id number] 26 Information not available 01/09/2023 Family History Relationship Description Onset Age of this Age Resolved Age Notes LastModified by Organization Details LastModified Time Father Multiple lipomata MIGRATION.251 [id number] Not available 01/09/2023 04:43:18 Son Multiple lipomata MIGRATION.350 [id number] Not available 01/09/2023 04:43:18 Medical History No medical history recorded. Gynecological HistoryNo gynecological history recorded. Obstetrics History GPAL:G 0 P 0 0 0 0 Immunizations Vaccine Type Date Status Note Provider Nam e and Address Organization Details Recorded Time COVID-19, mRNA, LNP-S, PF, 100 mcg/0.5mL dose or 50 mcg/0.25mL dose 1 completed Delmy Victor CMA null, [employer] 01/29/2024 14:13:59 SARS-COV-2 (COVID-19) vaccine, UNSPECIFIED 1 completed Delmy Victor CMA null, [employer] 01/29/2024 14:13:59 SARS-COV-2 (COVID-19) vaccine, UNSPECIFIED 1 completed Delmy Victor CMA null, [employer] 01/29/2024 14:13:59 Tdap 7 completed Delmy Victor CMA null, [employer] 01/29/2024 14:13:59 Influenza, high-dose, quadrivalent, PF 2 completed Not Available [facility] 01/09/2023 05:03:25 Influenza, high-dose, quadrivalent, PF 1 completed Not Available [facility] 01/09/2023 05:03:25 Influenza, high-dose, quadrivalent, PF 0 completed Not Available [facility] 01/09/2023 05:03:25 Influenza, high-dose, trivalent, PF 8 completed Not Available [facility] 01/09/2023 05:03:25 Influenza, high-dose, quadrivalent, PF 3 completed Arie Azul MD [address] [facility], [facility] [address], [place], [address], [facility] [employer] [facility] 09/09/2023 17:06:58 Past Encounters Encounter ID Performer Location Encounter Start Date Encounter Closed Date Diagnosis/Indication Diagnosis SNOMED-CT Code Diagnosis ICD10 Code Diagnosis Note [id number] Arie Azul MD [facility] [facility] [facility] [address] [place] [address]. [place] [address] 04/25/2021 00:00:00 04/25/2021 16:56:08 [id number] Arie Azul MD [facility] [address] [place] [address] 08/22/2021 00:00:00 08/22/2021 14:38:59 [id number] MD EDI [facility] [address] [place] [address] 12/27/2021 00:00:00 12/27/2021 15:22:29 [id number] MD [facility] [address] [place] [address]. [place] [address] 05/03/2022 00:00:00 05/03/2022 17:43:25 [id number] Arie Azul MD [facility] [address] [place] [address] 09/06/2022 00:00:00 09/06/2022 12:11:20 [id number] MD [facility] [address] [place] [address] 01/07/2023 00:00:00 01/07/2023 14:56:09 [id number] Arie Azul MD S[facility] [address] [place] [address] 05/07/2023 09:53:04 05/07/2023 10:44:12 Essential hypertension 36251526 I10 under control Gastritis 0081945 K29.70 prn meds Hyperlipidemia 10986350 E78.5 labs Vitamin D deficiency 347 65051 E55.9 otc Abnormal weight loss 267 919602 R63.4 has stabilized Anxiety 71069494 F41.9 under control Hiatal hernia 10005444 K 44.9 no symptoms Hypokalemia 04139768 E87 .6 labs Adult heal th examination 098716314 Z00.00 Colonoscop y 07/[address] Mir hoffman- 05/2022 , no more neededDexa - 01/26/21FL U- OV ID- 12/29/20, 01/29/21 Screening for disorder 439076397 Z13.9 Prediabetes 402146090 R7 3.03 diet discussed Postmenopausal state 764 57576 Z78.0 [id number] Arie Azul MD [facility] Med [address] [place] [address] 09/09/2023 14:00:32 09/09/2023 14:46:22 Essential hypertension 29723405 I10 under control Gastritis 8508268 K29.70 prn meds Hyperlipidemia 62194503 E78.5 labs good Vitamin D deficiency 347 76999 E55.9 otc Abnormal weight loss 267 452723 R63.4 has been gaining now Anxiety 93321434 F41.9 under control Hiatal hernia 35309028 K 44.9 no symptoms any more Hypokalemia 99854553 E87 .6 improved Adult heal th examination 521433159 Z00.00 Colonoscop y 07/[address] Mir hoffman- 05/2022 , no more neededDexa - 05/16/23FL U- 09/09/2023 COVID- 12/29/20, 01/29/21 Prediabetes 697344577 R7 3.03 better Administra tion of influenza vaccine 78235313 Z23 [id number] Arie Azul MD [facility] Internal Med [address] [place] [address] 01/29/2024 14:00:32 01/29/2024 14:25:46 Essential hypertension 50094880 I10 watch Gastritis 2128347 K29.70 prn meds Hyperlipidemia 70671235 E78.5 labs next time Vitamin D deficiency 347 42536 E55.9 otc Abnormal weight loss 267 509156 R63.4 has stabilized Anxiety 30347725 F41.9 under control Hiatal hernia 83957535 K 44.9 no symptoms any more Hypokalemia 90313827 E87 .6 improved Adult heal th examination 792789045 Z00.00 Colonoscop y 07/[address] Mir hoffman- 05/2022 , no more neededDexa - 05/16/23FL U- 09/09/2023 COVID- 12/29/20, 01/29/21, 10/03RSV-P revnar 13-Pneumov ax 23- Prediabetes 637880013 R7 3.03 better, keep watching diet [id number] Arie Azul MD [facility] Internal Med [address] [place] [address] 06/15/2024 09:51:05 06/15/2024 11:04:30 Essential hypertension 52162118 I10 under control Gastritis 9838174 K29.70 prn meds Hyperlipidemia 82964923 E78.5 labs Vitamin D deficiency 347 67231 E55.9 otc Abnormal weight loss 267 592256 R63.4 has stabilized Anxiety 96367993 F41.9 under control Hiatal hernia 37016795 K 44.9 no symptoms any more Hypokalemia 97975721 E87 .6 improved Adult heal th examination 082639106 Z00.00 Colonoscop y 07/31, approx. [address] Mir hoffman- 05/2022 , no more neededDexa - 05/16/23FL U- 09/09/2023 COVID- 12/29/20, 01/29/21, 10/03RSV-P revnar 13- had it in the pastPneumo vax 23- had it in the past Prediabetes 919355782 R7 3.03 keep watching diet Long-term drug therapy 665906690 Z79.899 Screening for disorder 737922307 Z13.9 [id number] Arie Azul MD [facility] Internal Med [address] [place] [address] 10/15/2024 14:28:52 10/15/2024 15:19:18 Essential hypertension 57817870 I10 under control Gastritis 1759462 K29.70 prn meds help Hyperlipidemia 97637007 E78.5 under control Vitamin D deficiency 347 76153 E55.9 otc Abnormal weight loss 267 461031 R63.4 watch Anxiety 29114873 F41.9 under control Hiatal hernia 53711420 K 44.9 no symptoms any more Hypokalemia 05589514 E87 .6 improved Adult heal th examination 349759399 Z00.00 Colonoscop y 07/31, approx. [address] Mir trinhram- 05/2022 , no more neededDexa - 05/16/23FL U- 09/09/2024 COVID- 12/29/20, 01/29/21, 10/03RSV-P revnar 13- had it in the pastPneumo vax 23- had it in the past Prediabetes 400148814 R7 3.03 keep watching diet [id number] Arie Azul MD [facility] Internal Med [address] [place] [address] 12/01/2024 09:43:18 12/01/2024 10:41:22 Anxiety 18681514 F41.9 hydroxyzin e 50 mg biddon't get confused with trazodone or nortriptyl ine which she should not takediscus sed with her daughter and anothe daughter on the phone Insomnia 978069784 G47.0 0 hydroxyzin e Irritable bowel syndrome 88979631 K58.9 otc imodium [id number] Arie Azul MD [facility] [address] [place] [address] 12/22/2024 14:14:50 12/22/2024 15:20:25 Anxiety 23497043 F41.9 ^ THE DOSE TO 100 MG PM , 50 IN AM Urinary symptoms 8586008 08 R39.9 [id number] Arie Azul MD [facility] Internal Med [address] [place] [address] 02/02/2025 15:51:35 02/02/2025 16:54:53 Anxiety 30585162 F41.9 Dyspnea 791105279 R06.00 off and on, non smoker [id number] Taqueria sultana MD [facility] General Surgery [address] [facility] [place] [address] 03/02/2025 11:42:11 03/25/2025 09:25:14 [id number] Arie Azul MD [facility] Internal Med [address] [place] [address] 03/19/2025 15:16:37 03/19/2025 17:00:24 Increased frequency of urination 327531625 R35.0 [id number] Arie Azul MD [facility] Internal Med [address] [place] [address] 04/08/2025 13:58:06 04/08/2025 17:01:08 Transition of care 5201588792 105 Z75.8 Discussed all discharge paper work with patient at this time. Hiatal hernia 84261426 K 44.[address] Martinez at [facility] surgery but patient not sure at this time. Hernia of abdominal cavity 32754265 K46.0 Repaired at [place]- ischemic bowel noted repaired emergently on 03/29 with no complicati ons. [id number] Arie Azul MD [facility] Internal Med [facility] [address] [place] [address] 05/05/2025 16:08:55 05/05/2025 17:29:07 Essential hypertension 39899558 I10 lowstop HCTZ Gastritis 0802944 K29.70 prn meds help Hyperlipidemia 76410987 E78.5 under control Vitamin D deficiency 347 46943 E55.9 otc Abnormal weight loss 267 973514 R63.4 watch, add ensure Anxiety 22799311 F41.9 under control Hiatal hernia 28621443 K 44.9 no symptoms any more Hypokalemia 39129261 E87 .6 improved Adult heal th examination 312684217 Z00.00 Colonoscop y 07/31, approx. [address] Hester oggabriel- 05/2022 , no more neededDexa - 05/16/23FL U- 09/09/2024 COVID- 12/29/20, 01/29/21, 10/03RSV-P revnar 13- had it in the pastPneumo vax 23- had it in the past Prediabetes 426948630 R7 3.03 keep watching diet Insomnia 368843807 G47.0 9 hydroxyzin e Health Concerns Section Related Observation LastModified by Organization Detai ls LastModified Time None Recorded Concern Status LastModified by Organization Details LastModified Time None Recorded Advance Directives Directive Y: Payers Insurance Date Sequence Insurance Name Policy Number Policy Calderon Covered Member ID Calderon Member ID Guarantor Name 05/31/2025 2 [place] [id number] Aileen W Cruzito [id number] Aileen Phoenix Cruzito 05/02/2025 1 [place] Aileen Allen Cruzito [id number] Aileen Phoenix Cruzito 03/25/2025 2 [employer] - PLAN G (MEDICARE SUPPLEMENT) Aileen Cruzito [id number] [id number] Aileen Phoenix Cruzito Notes Date Note Type Note Provider Name and Address Organization Details Recorded Time 02/02/2025 text/html ROS as noted in the HPI Pt is here today for a follow up on her anxietyWas started on Hydroxyzine last month and her daughter said she can not tell the difference. Still real fidgety and makes a weird shape with her mouth nit knowinglyThey are worried about her weight. She has lost another 4 lbs.She does eat and also has been drinking boost some times gets sob, was never a smoker Arie Azul MD [address] [facility], [facility] [address], [place], [address], [facility] [employer] 02/02/2025 16:28:25 03/02/2025 text/html Patient presents to clinic s/p L inguinal hernia repair. Doing well. No post operative concerns. No fevers. No drainage. Regular appetite and bowel habits. Taqueria Meyer MD [address], [facility] [address], [place], [address], [facility] [employer] 03/02/2025 17:48:49 03/19/2025 text/html Patient is 84y/o female who reports urinary frequency and dysuria. Patient is accompanied by daughter at this time. Patient states she is having increased amounts of frequency. Patient states she does not drink much water. Patient denies hematuria and fever, or cva tenderness at this time. wears depends VALERIA Cheung [address], [facility] [address], [place], [address], [facility] [employer] [facility] [employer] [facility] 03/19/2025 16:42:51 04/08/2025 text/html Patient is an 84y/o female who is here for hospital follow up at this time. Patient was admitted to [facility] on 03/26 for vomiting and abdominal pains with history of hernia repair in February. Patient ears discharged with no changes on 03/28. Patient daughter called EMS that evening and had her taken to [place] in [facility]. Patient was readmitted with severe abdominal pain and shortness of breath, N/V. She recently was evaluated by Dr. Lombardo for hiatal hernia on 03/11. At. CT showed 2/2 strangulated R femoral hernia with marked dilation of stomach in the hiatal hernia. She was taken to the OR on 03/29 for femoral and indirec hernias with ischemic bowel which was repaired. Patient was discharged on 04/04 to home. Was advised home health which patient denied. She has follow up surgical phone call scheduled on April 24, and is to follow up with Dr. Lombardo office. Medications have been updated in the chart. Medications were also discussed with both daughters and patient in office at this time. Currently, patient denies N/V/D at this time, no abdominal pains, fevers, pain, or concerns. She reports that she has been washing site with soapy warm water as directed with no concerns at this time. [place] 03/26- 5-18EM[facility] to [place] 03/28 Dc 04/04-paperwork Sertraline- still taking, dosage increased discussed with Dr. Azul 04/07Buspirone- increased per Dr. Azul 04/07Methocarbamol 500mg- Patient not taking per Daughter Ree Nicole, REPAIR SPECIALIST-C [address] [facility], [address], [place], [address], [employer] 04/09/2025 11:06:40 05/05/2025 text/html Here today for 4 mo f/u Compliant to medication. refil on ramelteon*gave up driving* having vaginal bleeding onset 1 wk, SEES the [facility] tomorrow PT IS NOT FASTING ( Medicare/skyrockit ) She lives with her sonHyperlipidemia- Labs were NL 06/2024Meds- Simvastatin 20 mg dailyHypertension- low due to weight loss, no dizzinessMeds- Amlodipine 10 mg daily, HCTZ 25 mg daily, irbesartan 150 mg qd, hctz will be stoppedPrediabetes - A1c was 6.0, (06/15/2024) watching diet ,GERD/ Large Hiatal hernia- not on meds , cosby snot want surgery Depression/Anxiety is under control, seen a therapist in the past, mood is stable , has taken sertraline, venlafaxine and mirtazapine in the past, no meds needed any moreMeds- sertraline 100 mg , buspirone 10 mg Insomnia- meds helpmeds-Ramelteon 8 mg qhs ( will try half the pillHad some memory concern in the past, MME was few yrs ago, she thinks her memory is good s/p hernia repair , strangulated Arie Azul MD [address] [facility], [address], [place], [address], [employer] 05/05/2025 16:44:36 OBGyn Episode No OBEpisode recorded.
--- OUTSIDE RECORDS SUMMARY | 2025-06-05 12:12 | XMS_ITS | Clinical Summary ---
Author Organization [email or web address] Address [address] [place] [address] Care Team Providers Care Flight Test Mechanic Name Role Phone Ck Escobar Primary Care Provider Source Comments [email or web address],non-owned Affiliates and Associated Physician Practices is amultiple site organization consisting of ambulatory clinics and hospital sitesin [place], [place], [place] and [place]. This disclosure is being madepursuant to the Care Everywhere program and may not contain all information available regarding this patient. Last updated 18.[email or web address] Allergies No known active allergies Medications * Be aware that medications may not be up to date on this document. Alwaysverify current medications with the patient. AmLODIPine Besylate (NORVASC PO) Active LISINOPRIL PO Active SIMVASTATIN PO Activ e VALSARTAN PO Active CARVEDILOL PO Active Social History Tobacco Use Types Packs/Day Years Used Date Smoking Tobacco: Never Smokeless Tobacco: Never Comments No Sex and Gender Information Value Date Recorded Sex Assigned at Not on file Legal Sex Female 1:12 PM WEATHERIZATION DIRECTOR Gender Identity Not on file Sexual Orientation Not on file Last Filed Vital Signs Vital Sign Reading Time Taken Comments Blood Pressure 120/82 12/07/2017 2:38 PM WEATHERIZATION DIRECTOR Pulse 115 12/07/2017 2:38 PM WEATHERIZATION DIRECTOR Temperature 36.8 C (98.3 F) 12/07/2017 2:38 PM WEATHERIZATION DIRECTOR Respiratory Rate 16 12/07/2017 2:38 PM WEATHERIZATION DIRECTOR Oxygen Saturation 96% 12/07/2017 2:38 PM WEATHERIZATION DIRECTOR Inhaled Oxygen Concentration - - Weight 59 kg (130 lb) 12/07/2017 2:38 PM WEATHERIZATION DIRECTOR Height 152.4 cm (5') 12/07/2017 2:38 PM WEATHERIZATION DIRECTOR Body Mass Index 25.39 12/07/2017 2:38 PM WEATHERIZATION DIRECTOR Plan of Treatment Health Maintenance Due Date Last Done Comments BONE DENSITY TESTING 1942 DTAP/TDAP/TD VACCINES (1 - Tdap) 1961 PNEUMOCOCCAL VACCINE 50+ (1 of 1 - PCV) 1992 ZOSTER VACCINE (1 of 2) 1992 Respiratory Syncytial Virus (RSV) Vaccine Pt: or over 60 yrs (1 - 1-dose 75+ series) 2017 COVID-19 VACCINE (2 - 2023-2 5 season) 2024 08/30/2021 DEPRESSION SCREENING 11/11/2024 INFLUENZA VACCINE (#1) 2025 2018 HEPATITIS B VACCINE Aged Out No longe r eligible based on patient's age to complete this topic HIB VACCINE Aged Out No longer eligi ble based on patient's age to complete this topic HPV VACCINE Aged Out No longer eligi ble based on patient's age to complete this topic MENINGOCOCCAL (Group B) VACC INE SHARED DECISION-MAKING Aged Out No longer eligibl e based on patient's age to complete this topic MENINGOCOCCAL GROUPS A/C/Y/W VACCINE Aged Out No longer eligible b ased on patient's age to complete this topic Insurance MEDICARE COMMERCIAL GENERIC Care Teams Flight Test Mechanic Relationship Specialty Start Date End Date Carlos Escobar MD [address] [phone] PCP - General Cardiovascular Disease 12/07/17
--- OUTSIDE RECORDS SUMMARY | 2025-06-05 12:12 | XMS_ITS | Patient Health Record ---
Author Organization [facility] As [employer] [facility] Address [address] [place] [address] Care Team Providers Care Software Verification Engineer Name Role Phone Lawrence Pulido Unavailable [phone] Reason For Referral No Information Medications Medication SIG (Take, Route, Frequency, Duration) Notes Start Date End Date Status Aspirin Adult Low Strength 8 1 MG Oral 08/31/2020 Active Simvastatin 20 MG Oral 08/31/2020 A ctive Sertraline HCl 50 MG Oral 08/31/2020 Active PEG 3350-KCl-Na Bicarb-NaCl 420 GM Oral 08/31/2020 Active Irbesartan 300 MG Oral 08/31/2020 A ctive Esomeprazole Magnesium 40 MG Oral 08/31/2020 Active Carvedilol 12.5 MG Oral 08/31/2020 Active Mirtazapine 30 MG Oral 08/31/2020 A ctive amLODIPine Besylate 10 MG Oral 08/31/2020 Active hydroCHLOROthiazide 25 MG Oral 08/31/2020 Active Immunizations Vaccine Route Administration Date Status Comme nts Tdap Unknown 11/11/2017 Administered Pneumococcal conjugate PCV 7 Unknown 11/11/2016 Adminis tered Influenza virus vaccine, quadrivalent (IIV4), split virus, 0.25 mL dosage Unknown 08/11/2019 Administered Plan Of Treatment No Information Insurance Providers Payer Name Payer Address Payer Phone Subscriber Number Group Number Insured Name Patient Relationship to Insured Coverage Start Date Coverage End Date Medicare-I l Medicare [address] [place] [phone] [id number] MARY LIRA Self - patient is the insured [employer] [address] [place] [phone] [id number] MARY LIRA Self - patient is the insured
--- OUTSIDE RECORDS SUMMARY | 2025-06-05 12:12 | XMS_ITS | Referral Summary ---
Author Organization [facility] [address] Address [address] [place] [address] Care Team Providers Care Landing Scaler Name Role Phone Nicolás Azul MD Primary Care Provider Encounters Date Type Department Care Team Description 05/26/2025 Telephone [facility] Surgery [address] [facility] Floor 5 [place] [address] Ellie Calles NP 04/21/2025 Telephone [facility] Gastroenterology [address] [facility] Medical Office Building [address], [address] [place] [address] Natali Martin RMA 04/21/2025 Telephone [facility] Gastroenterology [address] [place] [address] Medical Office Building [address], [address] [place] [address] Eileen Lackey LPN GI Preprocedure 04/14/2025 2:00 PM CDT Telemedicine [facility] Department of Surgery [address] [facility] 12th [place] [address] Rhina Cox, SOCORRO S/P inguinal hernia repair, follow-up exam (Primary Dx) 04/08/2025 Telephone [facility] Surgery [address] [facility] [address] [place] [address] Ninfa Calles RMA 04/07/2025 Orders Only [facility] Surgery [address] [facility] [address] [place] [phone] Royal Lombardo MD 04/06/[address] [phone] Glendy Jiang NP 04/05/[address] [place] [phone] Mateo Cuevas RN 03/28/2025 8:33 PM CDT - 04/02/2025 2:53 PM CDT Hospital Encounter [address] [phone] Aaron Sorenson MD Renz, MD Gustavo Hills Matthew Justin, Incarcerated hernia (Primary Dx); SBO (small bowel obstruction) (HCC); Hiatal hernia; Severe protein-calorie malnutrition Discharge Disposition: Discharge to home, home health skilled care 03/29/2025 12:47 AM CDT Anesthesia Event [facility] Operating Room 1 [place] [phone] Vanessa Osorio MD Curless, Chelsea Kathryn, CRNA 03/29/2025 12:50 AM CDT - 03/29/2025 3:45 AM CDT Surgery [facility] Operating Room 1 [place] [phone] Gavin Chen DO RIGHT FEMORAL AND RIGHT INGUINAL HERNIA REPAIR 03/23/2025 Telephone [facility] Gastroenterology [facility] Medical Office Building [address], [address] [place] [address] Dayami Rain RN 03/11/2025 Orders Only [facility] Surgery [address] [facility] [address] [place] [address] Royal Lombardo MD Hiatal hernia (Primary Dx) 03/11/2025 Orders Only [facility] Surgery [address] [facility] Floor 5 [place] [address] Ellie Calles NP 03/11/2025 Orders Only [facility] Surgery [address] [facility] Floor 5 [place] [address] Ellie Calles NP Malnutrition, unspecified type (Primary Dx) 03/11/2025 11:30 AM CDT Office Visit [facility] Physicians [facility] [address] Surgery [address] [facility] [address] [place] [address] Royal Lombardo MD Hiatal hernia (Primary Dx) from Last 3 Months Allergies No known active allergies Medications aspirin 81 mg enteric coated tablet Take by mouth daily Active hydroCHLOROthia zide (HYDRODIURIL) 25 mg tablet Take 1 tablet (25 mg total) by mouth daily 06/14/2022 Active irbesartan (AVAPRO) 150 mg tablet Take 1 tablet (150 mg total) by mouth daily 01/18/2025 Active atorvastatin (LIPITOR) 20 mg tablet Take 1 tablet (20 mg total) by mouth daily 30 tablet 04/03/2025 04/03/20 26 Active acetaminophen 500 mg capsuleIndicati ons:Fever,Pain Take 2 capsules (1,000 mg total) by mouth every 6 (six) hours 30 tablet 04/02/2025 Active busPIRone (BUSPAR) 5 mg tabletIndicatio ns:Generalized Anxiety Disorder Take 1 tablet (5 mg total) by mouth 2 (two) times a day 60 tablet 04/02/2025 04/02/20 26 Active folic acid (FOLVITE) 1 mg tablet Take 1 tablet (1 mg total) by mouth daily for 5 doses 5 tablet 04/03/2025 Active loperamide (IMODIUM) 2 mg capsuleIndicati ons:diarrhea Take 1 capsule (2 mg total) by mouth 2 (two) times a day as needed for diarrhea 30 capsule 04/02/2025 Active multivit imabvsbv-vnzw-D A-calcium (THERA-M) 9 mg iron-400 mcg tablet Take 1 tablet by mouth daily 30 tablet 04/03/2025 Active pyridoxine (VITAMIN B-6) 100 mg tablet Take 1 tablet (100 mg total) by mouth daily for 3 doses 3 tablet 04/03/2025 Active thiamine (VITAMIN B1) 100 mg tablet Take 1 tablet (100 mg total) by mouth daily for 5 doses 5 tablet 04/03/2025 Active ramelteon (ROZEREM) 8 mg tabletIndicatio ns:Sleep-Onset Insomnia Take 1 tablet (8 mg total) by mouth nightly as needed for sleep 30 tablet 04/02/2025 Active Active Problems Patient Care Coordination No te Formatting of this note migh t be different from the original. Referring provider: Dr. Nicolás Azul Ms. Aileen East is an 84-year-old with a hiatal hernia. Patient initially presented with symptoms of lower abdominal pain. On 02/20/[address] of the abdomen and pelvis with contrast which noted a large defects seen in the left inguinal region measuring 25 mm with fat and loops of bowel seen herniating through it with proximal dilation of the ileal loops seen in the midline of pelvis. These features represent an obstructive left inguinal hernia. There is also a large hiatus hernia with a defect size of 6.5 cm with the stomach, tail of the pancreas and large bowel loops seen herniating through it. The herniated content is seen pushing the heart towards the right. A herniated portion of the stomach is diffusely dilated. Patient has a history of a left inguinal hernia and is status post left inguinal hernia repair with mesh on 02/20/2025. On 03/02/2025 the patient underwent an esophagram which showed an apparent marked elevation of the left hemidiaphragm with presumed gas-filled bowel underlying. Limited evaluation of the esophagus with no definitive abnormality seen. The examination was terminated due to the appearance of the left upper quadrant of the abdomen and reported history of recent surgery. Patient has a BMI of 25.39. She is a never smoker. Her other abdominal surgeries include a hysterectomy and bladder suspension. Patient presents today for further surgical evaluation. Problem Noted Date Diagnosed Date Severe protein-calorie malnutrition 03/30/2025 Encounter for medication review 03/29/2025 Assessment & Plan (03/29/2025 9:31 AM CDT): 03/29 [facility] dispense report reviewed and updated in ADMISSIONS tab Discharge planning issues 03/29/2025 Assessment & Plan (04/02/2025 9:39 AM CDT): 03/29 functionally independent at baseline, anticipate return to home when medically stable pending formal PT/OT eval post-op; barrier to discharge: NGT, PO tolerance, PT/OT eval; ADD end of week 03/30 barrier to discharge: PO intake, bowel function; ADD end of week, patient declining placement, will plan for home with home health when medically stable 03/31 slightly confused overnight, self DC NGT and IV, started PO intake- CLD 04/01 advance diet, PT/OT- likely DC tomorrow 04/02 Patient is medically stable for discharge, SW/CM updated. Discharge pending home with family Anxiety and depression 03/29/2025 Assessment & Plan (04/02/2025 11:50 AM CDT): Home regimen: sertraline (held while NPO) 03/31 self DC NGT and IV vaccess overnight, spoke to patient daughter Lana who stated anxiety is patient baseline including inability to sit still and frequent wringing/ rubbing of hands, very fidgety, but is noncompliant with medications. Will start Buspar 2.5 mg PO x1, CTM 04/01 placed on O2 in the setting of feeling anxious and fullness after eating dinner 04/02 weaned to room air, no need for home O2 PLAN: Ordered Buspar 5mg PO BID- talked to the patient and daughter regarding continuing this outpatient HTN (hypertension) 03/29/2025 Assessment & Plan (03/30/2025 11:20 AM CDT): Home regimen: coreg, irbesartan, hctz (held while NPO) Care previously established with [facility] (Dr. Ceron), last seen 03/29 requested last echo (2017) from office, patient states her current antihypertensive regimen is managed by her PCP 05/2018 TTE: EF 65%, diastolic function not mentioned, structurally intact HLD (hyperlipidemia) 03/29/2025 Assessment & Plan (04/01/2025 10:22 AM CDT): Home regimen: ASA, atorvastatin (held while NPO) 04/01 restarted home meds Gastrointestinal dysmotility 03/29/2025 Assessment & Plan (03/30/2025 11:18 AM CDT): Home regimen: reglan (held while NPO) - will discuss resuming IV formulation if prolonged period of awaiting return of function Left inguinal hernia 03/29/2025 Assessment & Plan (03/29/2025 9:39 AM CDT): LEFT inguinal hernia repair (02/2025, [facility]) Hiatal hernia 03/29/2025 Assessment & Plan (04/02/2025 11:11 AM CDT): Care established with Dr. Lombardo, last seen 03/11 for symptomatic hiatal hernia Hiatal Hernia: Reached out to Dr. Lombardo's team prior to discharge to help coordinate outpatient preop work up. Please call [phone] to make a follow up appointment with Dr. Lombardo -EGD, PFTs, 6 minute walk, Nutritional labs Acute post-operative pain 03/29/2025 Assessment & Plan (04/02/2025 9:45 AM CDT): 03/29 pain uncontrolled, holding oral analgesia iso NGT with recent SBR, dilaudid IV PRN + lidoderm + norflex, OK for [employer]ARR[employer]END[employer]ER if remains uncontrolled 03/30 reports pain is controlled, no change to regimen 03/31 stopped PO Oxycodone due to increased confusion 04/01 added Robaxin to regimen Plan to discharge on current regimen, NO Oxycodone due to confusion post op. Pain well controlled at the time of discharge At risk for malnutrition 03/29/2025 Assessment & Plan (04/01/2025 10:19 AM CDT): Body mass index is 17.85 kg/m . RD consulted for malnutrition evaluation Surveillance nutrition labs with next lab draw and weekly while in house 03/30 prealbumin overnight not processed, reordered for AM labs today 03/31 Albumin 3.6, Prealbumin 10 04/01 started nutritional supplements Acute respiratory insufficiency 03/29/2025 Assessment & Plan (03/30/2025 11:16 AM CDT): 03/29 requiring 2L NC postop, IS, PEP therapy ordered, OOB with PT/OT, wean for SpO2 >92% 03/30 room air RESOLVED Incarcerated hernia 03/28/2025 Assessment & Plan (04/02/2025 10:05 AM CDT): Presented to ED with 2w h/o abdominal pain 03/28 CT C/A/P concerning for SBO 2/2 strangulated R femoral hernia + marked dilation of her stomach within her hiatal hernia. --- 03/29 OR ([facility]): femoral and indirect hernias identified w/ knuckle of ischemic bowel from femoral defect, small-segment SBR w/ anastomosis, primary repair, skin closed - POD0 AFVSS, NGT in intrathoracic stomach with 2.5L output since placement, 1L LR given overnight, repeat 1L LR bolus for repletion, repeat labs post-op, NPO/ARBF - 03/30 POD1 AFVSS, ngt remains in intrathoracic stomach, output 625cc/24h, remove ngt when passing flatus, R groin dermabond intact -03/31 POD#2 self DC NGT and IV access, + flatus reported, started CLD, Dermabond intact to right groin, surgical pathology still pending -04/01 POD#3 +BM, advanced to a regular diet, dermabond intact to RLQ incision, surgical pathology still pending, likely DC tomorrow -04/02 POD#4 continues to tolerate PO diet and +BM, dermabond to RLQ no erythema or drainage noted Follow Plan: You may shower allowing warm soapy water running over your incision, Follow up phone call scheduled 04/24 at 2pm, please call [phone] with any surgical questions CULTURES: none ANTIBIOTICS: none PATHOLOGY: OR 03/29 Small bowel, resection - Small bowel with transmural ischemia - Surgical margins viable Social History Tobacco Use Types Packs/Day Years Used Date Smoking Tobacco: Never Smokeless Tobacco: Never Tobacco Cessation:Counseling Given: Not Answered [facility] [employer] Answer Date Recorded In the past 12 months has e hi5, gas, oil, or water [employer] threatened to shut off services in your home? No 03/30/2025 Social Connection and Isolat ion Panel [NHANES] Answer Date Recorded In a typical week, how many times do you talk on the phone with family, friends, or neighbors? More than three times a week 03/30/2025 How often do you get togethe r with friends or relatives? More than three times a week 03/30/2025 How often do you attend chur ch or jew services? 1 to 4 times per year 03/30/2025 Do you belong to any clubs o r organizations such as muslim groups, unions, fraternal or athletic groups, or school groups? No 03/30/2025 How often do you attend meet ings of the clubs or organizations you belong to? Never 03/30/2025 Are you , , di vorced, , never , or living with a partner? 03/30/2025 AUDIT-C Answer Date Recorded Q1: How often do you have a drink containing alcohol? Never 03/11/2025 Q2: How many drinks containi ng alcohol do you have on a typical day when you are drinking? Patient does not drink Q3: How often do you have si x or more drinks on one occasion? Never 03/11/2025 Overall Financial Resource Strain (CARDIA) Answe r Date Recorded How hard is it for you to pa y for the very basics like food, housing, medical care, and heating? Not very hard 03/30/2025 Hunger Vital Sign Answer Date Recorded Within the past 12 months, y ou worried that your food would run out before you got the money to buy more. Never true 03/30/20 25 Within the past 12 months, t he food you bought just didn't last and you didn't have money to get more. Never true 03/30/2025 PRAPARE - Transportation Answer Date Re corded In the past 12 months, has l ack of transportation kept you from medical appointments or from getting medications? No 03/12 In the past 12 months, has l ack of transportation kept you from meetings, work, or from getting things needed for daily living? No 03/30/2025 Housing Stability Vital Sign Answer Moi e Recorded In the last 12 months, was t here a time when you were not able to pay the mortgage or rent on time? No 03/30/2025 In the past 12 months, how m any times have you moved where you were living? 0 03/30/2025 At any time in the past 12 m [facility], were you homeless or living in a long-term (including now)? No 03/30/2025 Personal Safety Answer Date Recorded Have you ever been in or are you currently in a harmful physical or emotional relationship or is someone making you feel afraid or unsafe? Denies 03/28/2025 Comments No Sex and Gender Information Value Date Recorded Sex Assigned at Not on file Legal Sex Female 7:41 PM CDT Gender Identity Not on file Sexual Orientation Not on file Last Filed Vital Signs Vital Sign Reading Time Taken Comments Blood Pressure 142/78 04/02/2025 11:28 AM CDT Pulse 79 04/02/2025 11:28 AM CDT Temperature 36.9 C (98.4 F) 04/02/2025 11:28 AM CDT Respiratory Rate 18 04/02/2025 11:28 AM CDT Oxygen Saturation 98% 04/02/2025 11:28 AM CDT Inhaled Oxygen Concentration - - Weight 41.5 kg (91 lb 6.4 oz) 03/29/2025 6:00 AM CDT Height 152.4 cm (5') 03/29/2025 6:00 AM CDT Body Mass Index 17.85 03/29/2025 6:00 AM CDT Plan of Treatment Not on file Procedures Procedure Name Priority Date/Time Associated Diagnosis Comments EGFR Routine 04/01/2025 9:21 PM CDT DIFFERENTIAL AUTO Routine 04/01/2025 9:2 1 PM CDT HEPATIC FUNCTION PANEL Routine 04/01/2025 9:21 PM CDT PHOSPHORUS Routine 04/01/2025 9:21 PM CDT MAGNESIUM Routine 04/01/2025 9:21 PM CDT CBC WITH AUTO DIFFERENTIAL Routine 04/01/2025 9:21 PM CDT BASIC METABOLIC PANEL Routine 04/01/2025 9:21 PM CDT PEP THERAPY Routine 04/01/2025 9:01 AM CDT PEP THERAPY Routine 03/31/2025 9:00 PM CDT XR CHEST 1 VIEW ED Urgent/IP Urgent 03/31/2025 7:43 PM CDT EGFR STAT 03/31/2025 6:48 PM CDT DIFFERENTIAL AUTO STAT 03/31/2025 6:4 8 PM CDT BASIC METABOLIC PANEL STAT 03/31/2025 6:48 PM CDT MAGNESIUM STAT 03/31/2025 6:48 PM CDT PHOSPHORUS STAT 03/31/2025 6:48 PM CDT CBC WITH AUTO DIFFERENTIAL STAT 03/31/2025 6:48 PM CDT PREALBUMIN STAT 03/31/2025 6:48 PM CDT ALBUMIN STAT 03/31/2025 6:48 PM CDT PEP THERAPY Routine 03/31/2025 4:37 PM CDT PEP THERAPY Routine 03/31/2025 4:37 PM CDT PEP THERAPY Routine 03/31/2025 4:37 PM CDT URINALYSIS AND REFLEX TO MICROSCOPIC Routine 03/31/2025 3:30 PM CDT XR ABDOMEN AP 1 VIEW IP Routine 03/30/2025 5:22 AM CDT EGFR STAT 03/30/2025 12:03 AM CDT DIFFERENTIAL AUTO STAT 03/30/2025 12: 03 AM CDT PHOSPHORUS STAT 03/30/2025 12:03 AM CDT MAGNESIUM STAT 03/30/2025 12:03 AM CDT CBC WITH AUTO DIFFERENTIAL STAT 03/30/2025 12:03 AM CDT BASIC METABOLIC PANEL STAT 03/30/2025 12:03 AM CDT EGFR Routine 03/29/2025 8:54 PM CDT CRITICAL RESULT CALLBACK CHEMISTRY Routine 03/29/2025 8:54 PM CDT PHOSPHORUS Routine 03/29/2025 8:54 PM CDT MAGNESIUM Routine 03/29/2025 8:54 PM CDT CBC WITHOUT DIFFERENTIAL Routine 03/29/2025 8:54 PM CDT BASIC METABOLIC PANEL Routine 03/29/2025 8:54 PM CDT ALBUMIN Timed 03/29/2025 8:54 PM CDT PREALBUMIN Timed 03/29/2025 8:54 PM CDT POCT GLUCOSE DEVICE Routine 03/29/2025 2 :33 PM CDT EGFR STAT 03/29/2025 8:44 AM CDT DIFFERENTIAL AUTO STAT 03/29/2025 8:4 4 AM CDT CBC WITH AUTO DIFFERENTIAL STAT 03/29/2025 8:44 AM CDT BASIC METABOLIC PANEL STAT 03/29/2025 8:44 AM CDT XR ABDOMEN AP 1 VIEW ED Urgent/IP Urgent 03/29/2025 7:35 AM CDT SURGICAL PATHOLOGY Routine 03/29/2025 2: 41 AM CDT Incarcerated hernia OK AN PROCEDURE PLACEHOLDER Routine 03/29/2025 1:21 AM CDT OK AN PROCEDURE PLACEHOLDER Routine 03/29/2025 1:21 AM CDT OK AN ELECTIVE ENDOTRACHEAL AIRWAY Routine 03/29/2025 1:21 AM CDT REPAIR INGUINAL HERNIA 03/29/2025 12:47 AM CDT Incarcerated hernia Case Notes [place] [id number] XR ABDOMEN AP 1 VIEW ED Urgent/IP Urgent 03/29/2025 12:16 AM CDT TROPONIN I HIGH-SENSITIVITY 2-HOUR Timed 03/28/2025 11:46 PM CDT OK CRITICAL CARE ILL/INJURED PATIENT INIT 30-74 MIN Routine 03/28/2025 10:[address] CHEST ABDOMEN PELVIS W CONTRAST ED 03/28/2025 10:33 PM CDT POCT LACTATE - DEVICE Routine 03/28/2025 9:46 PM CDT ECG 12-LEAD STAT 03/28/2025 9:36 PM CDT EGFR STAT 03/28/2025 9:24 PM CDT DIFFERENTIAL AUTO STAT 03/28/2025 9:2 4 PM CDT TROPONIN I HIGH-SENSITIVITY SERIES (BASELINE, 2HR, 4HR, 6HR) STAT 03/28/2025 9:24 PM CDT PRO B-TYPE NATRIURETIC PEPTIDE STAT 03/28/2025 9:24 PM CDT COMPREHENSIVE METABOLIC PANEL STAT 03/28/2025 9:24 PM CDT CBC WITH AUTO DIFFERENTIAL STAT 03/28/2025 9:24 PM CDT from Last 3 Months Results * eGFR (04/01/2025 9:21 PM CDT) eGFR >90 >=60 mL/min/1. 73 m2 Comment: Interpretive Data Reference Interval Normal >/= 90 mL/min/1.73m2 Mildly decreased* 60 - 89 mL/min/1.73m2 Mildly to moderately decreased 45 - 59 mL/min/1.73m2 Moderately to severely decreased 30 - 44 mL/min/1.73m2 Severely decreased 15 - 29 mL/min/1.73m2 Kidney Failure < 15 mL/min/1.73m2 *Relative to young adult level Estimated glomerular filtration rate is determined by the 2020 CKD-EPI equation recommended by the National Kidney Foundation (A Unifying Approach to GFR Estimation: Recommendations of the NKF-ASK Task Force on Reassessing the Inclusion of Race in Diagnosing Kidney Disease, JASN 2020). The CKD-EPI equation should not be used for patients with unstable renal function and has not been validated in children and those over 70. Current interpretive data was last reviewed 2021. Blood 04/01/2025 9:21 PM CDT 04/01/2025 10:37 PM CDT us Gavin Chen DO LAB BLOOD ORDERABLES Fi nal Result [facility] [address] [facility] Department [place] [address] * (ABNORMAL) Differential, auto (04/01/2025 9:21 PM CDT) Neutrophil abs 10.19(H) 1.50 - 6.50 K/cumm Imm gran abs 0.06 0.00 - 0.10 K/cumm [facility] Lymphocyte abs 0.28(L) 0.80 - 3.30 K/cumm [facility] Monocyte abs 0.98(H) 0.20 - 0.80 K/cumm [facility] Eosinophil abs 0.01 0.00 - 0.50 K/cumm [facility] Basophil abs 0.02 0.00 - 0.10 K/cumm [facility] Neutrophil pct 88.3 % [facility] Comment: Interpretive Data Percent cell count reference ranges are not reported, since discordance with absolute values may lead to misinterpretation of CBC data. Current Interpretive Data was last revised on 2018. Imm gran pct 0.5 % [facility] Comment: Interpretive Data Percent cell count reference ranges are not reported, since discordance with absolute values may lead to misinterpretation of CBC data. Current Interpretive Data was last revised on 2018. Lymphocyte pct 2.4 % [facility] Comment: Interpretive Data Percent cell count reference ranges are not reported, since discordance with absolute values may lead to misinterpretation of CBC data. Current Interpretive Data was last revised on 2018. Monocyte pct 8.5 % [facility] Comment: Interpretive Data Percent cell count reference ranges are not reported, since discordance with absolute values may lead to misinterpretation of CBC data. Current Interpretive Data was last revised on 2018. Eosinophil pct 0.1 % [facility] Comment: Interpretive Data Percent cell count reference ranges are not reported, since discordance with absolute values may lead to misinterpretation of CBC data. Current Interpretive Data was last revised on 2018. Basophil pct 0.2 % [facility] Comment: Interpretive Data Percent cell count reference ranges are not reported, since discordance with absolute values may lead to misinterpretation of CBC data. Current Interpretive Data was last revised on 2018. Blood 04/01/2025 9:21 PM CDT 04/01/2025 10:37 PM CDT us Gavin Chen DO LAB BLOOD ORDERABLES Fi nal Result Performing Organization Address City/State/[facility] Co de Phone Number [facility] [address] [facility] [place] [address] * (ABNORMAL) CBC with auto differential (04/01/2025 9:21 PM CDT) WBC 11.54(H) 3.80 - 9.90 K/cumm Hgb 10.8(L) 11.9 - 15.5 g/dL [facility] Hct 32.7(L) 35.6 - 45.5 % [facility] Plt 210 150 - 400 K/cumm [facility] MPV 10.0 9.1 - 12.3 fL [facility] RBC 3.60(L) 3.90 - 5.20 M/cumm [facility] MCV 90.8 81.3 - 96.4 fL [facility] MCH 30.0 27.1 - 33.3 pg [facility] MCHC 33.0 32.3 - 35.7 g/dL [facility] RDW CV 13.8 11.1 - 14.9 % [facility] RDW SD 46.3 35.7 - 48.1 fL [facility] NRBC abs 0.00 0.00 - 0.01 K/cumm [facility] Blood 04/01/2025 9:21 PM CDT 04/01/2025 10:37 PM CDT Gavin Chen DO LAB BLOOD ORDERABLES Fi nal Result Performing Organization Address [facility] Co de Phone Number [facility] [place] [address] * Phosphorus (04/01/2025 9:21 PM CDT) Phosphorus, pl 3.5 2.3 - 4.5 mg/dL Blood 04/01/2025 9:21 PM CDT 04/01/2025 10:37 PM CDT Gavin Chen DO LAB BLOOD ORDERABLES Fi nal Result Performing Organization Address City/[facility] Co de Phone Number [facility] [place] [address] * Magnesium (04/01/2025 9:21 PM CDT) Magnesium 1.8 1.4 - 2.5 mg/dL Blood 04/01/2025 9:21 PM CDT 04/01/2025 10:37 PM CDT Gavin Chen DO LAB BLOOD ORDERABLES Fi nal Result Performing Organization Address City/[facility] Co de Phone Number [facility] Department [place] [address] * (ABNORMAL) Hepatic function panel (04/01/2025 9:21 PM CDT) Bilirubin, total 0.3 0.1 - 1.2 mg/dL Bilirubin, direct 0.2 0.1 - 0.3 mg/dL [facility] Protein, pl 5.5(L) 6.5 - 8.5 g/dL [facility] Albumin 3.2(L) 3.5 - 5.0 g/dL [facility] Alk phos 42 40 - 130 Units/L [facility] ALT 18 7 - 45 Units/L [facility] AST 24 10 - 45 Units/L [facility] Blood 04/01/2025 9:21 PM CDT 04/01/2025 10:37 PM CDT Rhina Cox NP LAB BLOOD ORDERABLES Final Result Performing Organization Address [facility] de Phone Number [facility] Department [place] [address] * (ABNORMAL) Basic metabolic panel (04/01/2025 9:21 PM CDT) [facility] Sodium 140 135 - 145 mmol/L Potassium, pl 3.6 3.3 - 4.9 mmol/L [facility] Chloride 104 97 - 110 mmol/L [facility] CO2 28 22 - 32 mmol/L [facility] Anion gap 8 2 - 15 mmol/L [facility] BUN 13 6 - 25 mg/dL [facility] Creatinine 0.49(L) 0.60 - 1.10 mg/dL [facility] Glucose 114 70 - 199 mg/dL [facility] Comment: Interpretive Data Fasting glucose >/= 126 mg/dl is diagnostic for diabetes. Fasting is defined as no caloric intake for at least 8 hours. Fasting glucose between 100 mg/dl to 125 mg/dl is diagnostic of prediabetes. In a patient with classic symptoms of hyperglycemia or hyperglycemic crisis, a random glucose >/= 200 mg/dl is diagnostic for diabetes. In the absence of unequivocal hyperglycemia, results should be confirmed by repeat testing. The classification and Diagnosis of Diabetes Diabetes Care 2021; 46: S19-S40. Current interpretive data was last revised 2022. Calcium 8.6 8.5 - 10.3 mg/dL [facility] Blood 04/01/2025 9:21 PM CDT 04/01/2025 10:37 PM CDT us Gavin Chen DO LAB BLOOD ORDERABLES Fi nal Result [facility] [place] [address] * XR Chest 1 View (03/31/2025 7:43 PM CDT) Anatomical Region Laterality Modality Body, Chest N/A Computed Radiogr aphy 04/01/2025 11:5 9 AM CDT Impressions 04/01/2025 11:59 AM CDT Comparison to CT 03/28/2025. Severe elevation of left hemidiaphragm containing gas and fluid-filled dilated stomach, similar to CT and concerning for obstruction. There is mass effect causing rightward mediastinal shift, also unchanged. No right effusion. No pneumothorax. The cardiac silhouette is largely obscured. Electronically signed by: Yosvany Murphy M.D. Narrative 04/01/2025 11:59 AM CDT EXAMINATION: 1 view chest radiograph Procedure Note Yosvany Murphy MD - 04/01/2025 EXAMINATION: 1 view chest radiograph IMPRESSION: Comparison to CT 03/28/2025. Severe elevation of left hemidiaphragm containing gas and fluid-filled dilated stomach, similar to CT and concerning for obstruction. There is mass effect causing rightward mediastinal shift, also unchanged. No right effusion. No pneumothorax. The cardiac silhouette is largely obscured. Electronically signed by: Yosavny Murphy M.D. us Gavin Chen DO IMG XR PROCEDURES Final Result * eGFR (03/31/2025 6:48 PM CDT) Pathologist [facility] eGFR >90 >=60 mL/min/1. 73 m2 Comment: Interpretive Data Reference Interval Normal >/= 90 mL/min/1.73m2 Mildly decreased* 60 - 89 mL/min/1.73m2 Mildly to moderately decreased 45 - 59 mL/min/1.73m2 Moderately to severely decreased 30 - 44 mL/min/1.73m2 Severely decreased 15 - 29 mL/min/1.73m2 Kidney Failure < 15 mL/min/1.73m2 *Relative to young adult level Estimated glomerular filtration rate is determined by the 2020 CKD-EPI equation recommended by the National Kidney Foundation (A Unifying Approach to GFR Estimation: Recommendations of the NKF-ASK Task Force on Reassessing the Inclusion of Race in Diagnosing Kidney Disease, JASN 2020). The CKD-EPI equation should not be used for patients with unstable renal function and has not been validated in children and those over 70. Current interpretive data was last reviewed 2021. Blood 03/31/2025 6:48 PM CDT 03/31/2025 7:06 PM CDT Gavin Chen DO LAB BLOOD ORDERABLES Fi nal Result [facility] [place] [address] * (ABNORMAL) Differential, auto (03/31/2025 6:48 PM CDT) Pathologist [facility] Neutrophil abs 7.23(H) 1.50 - 6.50 K/cumm Imm gran abs 0.03 0.00 - 0.10 K/cumm [facility] Lymphocyte abs 0.52(L) 0.80 - 3.30 K/cumm [facility] Monocyte abs 0.74 0.20 - 0.80 K/cumm [facility] Eosinophil abs 0.09 0.00 - 0.50 K/cumm [facility] Basophil abs 0.01 0.00 - 0.10 K/cumm [facility] Neutrophil pct 84.0 % [facility] Comment: Interpretive Data Percent cell count reference ranges are not reported, since discordance with absolute values may lead to misinterpretation of CBC data. Current Interpretive Data was last revised on 2018. Imm gran pct 0.3 % [facility] Comment: Interpretive Data Percent cell count reference ranges are not reported, since discordance with absolute values may lead to misinterpretation of CBC data. Current Interpretive Data was last revised on 2018. Lymphocyte pct 6.0 % [facility] Comment: Interpretive Data Percent cell count reference ranges are not reported, since discordance with absolute values may lead to misinterpretation of CBC data. Current Interpretive Data was last revised on 2018. Monocyte pct 8.6 % [facility] Comment: Interpretive Data Percent cell count reference ranges are not reported, since discordance with absolute values may lead to misinterpretation of CBC data. Current Interpretive Data was last revised on 2018. Eosinophil pct 1.0 % [facility] Comment: Interpretive Data Percent cell count reference ranges are not reported, since discordance with absolute values may lead to misinterpretation of CBC data. Current Interpretive Data was last revised on 2018. Basophil pct 0.1 % [facility] Comment: Interpretive Data Percent cell count reference ranges are not reported, since discordance with absolute values may lead to misinterpretation of CBC data. Current Interpretive Data was last revised on 2018. Blood 03/31/2025 6:48 PM CDT 03/31/2025 7:06 PM CDT us Gavin Chen DO LAB BLOOD ORDERABLES Fi nal Result [facility] [place] [address] * (ABNORMAL) CBC with auto differential (03/31/2025 6:48 PM CDT) WBC 8.62 3.80 - 9.90 K/cumm Hgb 12.0 11.9 - 15.5 g/dL [facility] Hct 37.4 35.6 - 45.5 % [facility] Plt 224 150 - 400 K/cumm [facility] MPV 9.6 9.1 - 12.3 fL [facility] RBC 4.08 3.90 - 5.20 M/cumm [facility] MCV 91.7 81.3 - 96.4 fL [facility] MCH 29.4 27.1 - 33.3 pg [facility] MCHC 32.1(L) 32.3 - 35.7 g/dL [facility] RDW CV 13.9 11.1 - 14.9 % [facility] RDW SD 46.9 35.7 - 48.1 fL [facility] NRBC abs 0.00 0.00 - 0.01 K/cumm [facility] Blood 03/31/2025 6:48 PM CDT 03/31/2025 7:06 PM CDT Gavin Chen LAB BLOOD ORDERABLES Fi nal Result Performing Organization Address City/[facility] Co de Phone Number [facility] [place] [address] * (ABNORMAL) Prealbumin (03/31/2025 6:48 PM CDT) Pathologist [facility] Prealbumin 10.0(L) 20.0 - 40.0 mg/dL Blood 03/31/2025 6:48 PM CDT 03/31/2025 7:06 PM CDT Gavin Chen DO LAB BLOOD ORDERABLES Fi nal Result [facility] [place] [address] * Phosphorus (03/31/2025 6:48 PM CDT) Phosphorus, pl 2.8 2.3 - 4.5 mg/dL Blood 03/31/2025 6:48 PM CDT 03/31/2025 6:55 PM CDT Gavin Chen DO LAB BLOOD ORDERABLES Fi nal Result Performing Organization Address [facility] Co de Phone Number [facility] [place] [address] * Magnesium (03/31/2025 6:48 PM CDT) Pathologist [facility] Magnesium 1.9 1.4 - 2.5 mg/dL Blood 03/31/2025 6:48 PM CDT 03/31/2025 6:55 PM CDT Gavin Chen DO LAB BLOOD ORDERABLES Fi nal Result Performing Organization Address [facility] [place] [address] * Albumin (03/31/2025 6:48 PM CDT) Pathologist [facility] Albumin 3.6 3.5 - 5.0 g/dL Comment:Repeated and Verifie d Blood 03/31/2025 6:48 PM CDT 03/31/2025 6:55 PM CDT Gavin Chen DO LAB BLOOD ORDERABLES Fi nal Result Performing Organization Address [facility] de Phone Number [facility] [place] [address] * (ABNORMAL) Basic metabolic panel (03/31/2025 6:48 PM CDT) Pathologist [facility] Sodium 147(H) 135 - 145 mmol/L Potassium, pl 3.5 3.3 - 4.9 mmol/L [facility] Chloride 105 97 - 110 mmol/L [facility] CO2 31 22 - 32 mmol/L [facility] Anion gap 11 2 - 15 mmol/L [facility] BUN 8 6 - 25 mg/dL [facility] Creatinine 0.37(L) 0.60 - 1.10 mg/dL [facility] Glucose 122 70 - 199 mg/dL [facility] Comment: Interpretive Data Fasting glucose >/= 126 mg/dl is diagnostic for diabetes. Fasting is defined as no caloric intake for at least 8 hours. Fasting glucose between 100 mg/dl to 125 mg/dl is diagnostic of prediabetes. In a patient with classic symptoms of hyperglycemia or hyperglycemic crisis, a random glucose >/= 200 mg/dl is diagnostic for diabetes. In the absence of unequivocal hyperglycemia, results should be confirmed by repeat testing. The classification and Diagnosis of Diabetes Diabetes Care 202; 46: S19-S40. Current interpretive data was last revised 2022. Calcium 8.3(L) 8.5 - 10.3 mg/dL [facility] Blood 03/31/2025 6:48 PM CDT 03/31/2025 6:55 PM CDT us Gavin Chen DO LAB BLOOD ORDERABLES Fi nal Result [facility] [place] [address] * (ABNORMAL) Urinalysis reflex to microscopic (03/31/2025 3:30 PM CDT) Color, ur Straw Yellow Clarity, ur Clear Clear [facility] Specific gravity, ur 1.014 1.003 - 1.030 [facility] pH, urine 7.5 [facility] Comment: Interpretive Data U rine pH is affected by diet, medications, systemic acid-base disturbances, and renal tubular function. pH may affect urinary stone formation. For example, urine pH below 6.0 may help reduce the tendency for calcium phosphate stones and pH greater than 6.0 may reduce the tendency for uric acid stone formation. Source: [facility] [employer] Current Interpretive Data was last revised on 2017 Protein, ur ql Negative Negative [facility] Glucose, ur ql Negative Negative [facility] Ketones, ur 1+(A) Negative [facility] Bilirubin, ur Negative Negative [facility] Blood, ur Negative Negative [facility] Urobilinogen, ur <2.0 <2.0 mg/dL [facility] Nitrite, ur Negative Negative [facility] Leukocyte esterase, ur Negative Negative [facility] UA reflex comment Reflex conditions for microscopic UA not met. [facility] Urine 03/31/2025 3:30 PM CDT 03/31/2025 3:41 PM CDT Rhina Cox NP LAB URINE ORDERABLES Final Result [facility] [place] [address] * XR Abdomen 1 View AP (03/30/2025 5:22 AM CDT) Anatomical Region Laterality Modality Body, Abdomen N/A Computed Radiogr aphy 03/30/2025 8:37 AM CDT Impressions 03/30/2025 8:37 AM CDT Stomach remains decompressed with a gastric tube with tip and side-port in the gastric body. This the bowel gas pattern is within normal. Colonic diverticulosis is again noted. Electronically signed by: Volodymyr Cooper M.D. Narrative 03/30/2025 8:37 AM CDT EXAMINATION: Abdomen, one view. HISTORY: Evaluate for distention COMPARISON: 03/29/[address] scan performed on 03/28/2025 Procedure Note Volodymyr Cooper MD - 03/30/2025 EXAMINATION: Abdomen, one view. HISTORY: Evaluate for distention COMPARISON: 03/29/[address] scan performed on 03/28/2025 IMPRESSION: Stomach remains decompressed with a gastric tube with tip and side-port in the gastric body. This the bowel gas pattern is within normal. Colonic diverticulosis is again noted. Electronically signed by: Volodymyr Cooper M.D. us Glendy Jiang [employer]UCKLOAD OWNER OPERATOR IMG XR PROCEDURES Final Re sult * eGFR (03/30/2025 12:03 AM CDT) [facility] eGFR >90 >=60 mL/min/1. 73 m2 Comment: Interpretive Data Reference Interval Normal >/= 90 mL/min/1.73m2 Mildly decreased* 60 - 89 mL/min/1.73m2 Mildly to moderately decreased 45 - 59 mL/min/1.73m2 Moderately to severely decreased 30 - 44 mL/min/1.73m2 Severely decreased 15 - 29 mL/min/1.73m2 Kidney Failure < 15 mL/min/1.73m2 *Relative to young adult level Estimated glomerular filtration rate is determined by the 2020 CKD-EPI equation recommended by the National Kidney Foundation (A Unifying Approach to GFR Estimation: Recommendations of the NKF-ASK Task Force on Reassessing the Inclusion of Race in Diagnosing Kidney Disease, JASN 2020). The CKD-EPI equation should not be used for patients with unstable renal function and has not been validated in children and those over 70. Current interpretive data was last reviewed 2021. Blood 03/30/2025 12:0 3 AM CDT 03/30/2025 12:47 AM CDT Pierre Chen MD LAB BLOOD ORDERABLES nal Result [facility] [place] [address] * (ABNORMAL) Differential, auto (03/30/2025 12:03 AM CDT) [facility] Neutrophil abs 7.54(H) 1.50 - 6.50 K/cumm Imm gran abs 0.03 0.00 - 0.10 K/cumm [facility] Lymphocyte abs 0.63(L) 0.80 - 3.30 K/cumm [facility] Monocyte abs 1.24(H) 0.20 - 0.80 K/cumm [facility] Eosinophil abs 0.03 0.00 - 0.50 K/cumm [facility] Basophil abs 0.01 0.00 - 0.10 K/cumm [facility] Neutrophil pct 79.6 % [facility] Comment: Interpretive Data Percent cell count reference ranges are not reported, since discordance with absolute values may lead to misinterpretation of CBC data. Current Interpretive Data was last revised on 2018. Imm gran pct 0.3 % [facility] Comment: Interpretive Data Percent cell count reference ranges are not reported, since discordance with absolute values may lead to misinterpretation of CBC data. Current Interpretive Data was last revised on 2018. Lymphocyte pct 6.6 % [facility] Comment: Interpretive Data Percent cell count reference ranges are not reported, since discordance with absolute values may lead to misinterpretation of CBC data. Current Interpretive Data was last revised on 2018. Monocyte pct 13.1 % [facility] Comment: Interpretive Data Percent cell count reference ranges are not reported, since discordance with absolute values may lead to misinterpretation of CBC data. Current Interpretive Data was last revised on 2018. Eosinophil pct 0.3 % [facility] Comment: Interpretive Data Percent cell count reference ranges are not reported, since discordance with absolute values may lead to misinterpretation of CBC data. Current Interpretive Data was last revised on 2018. Basophil pct 0.1 % [facility] Comment: Interpretive Data Percent cell count reference ranges are not reported, since discordance with absolute values may lead to misinterpretation of CBC data. Current Interpretive Data was last revised on 2018. Blood 03/30/2025 12:0 3 AM CDT 03/30/2025 12:47 AM CDT Pierre Chen MD LAB BLOOD ORDERABLES Fi nal Result [facility] Department of Laboratories [place], [place] [id number] * (ABNORMAL) CBC with auto differential (03/30/2025 12:03 AM CDT) WBC 9.48 3.80 - 9.90 K/cumm Hgb 11.5(L) 11.9 - 15.5 g/dL [facility] Hct 35.2(L) 35.6 - 45.5 % [facility] Plt 203 150 - 400 K/cumm [facility] MPV 10.1 9.1 - 12.3 fL [facility] RBC 3.84(L) 3.90 - 5.20 M/cumm [facility] MCV 91.7 81.3 - 96.4 fL [facility] MCH 29.9 27.1 - 33.3 pg [facility] MCHC 32.7 32.3 - 35.7 g/dL [facility] RDW CV 14.5 11.1 - 14.9 % [facility] RDW SD 48.2(H) 35.7 - 48.1 fL [facility] NRBC abs 0.00 0.00 - 0.01 K/cumm [facility] Blood 03/30/2025 12:0 3 AM CDT 03/30/2025 12:47 AM CDT us Pierre Chen MD LAB BLOOD ORDERABLES Fi nal Result Performing Organization Address City/[facility]/ZIP Co de Phone Number [facility] [place] [address] * (ABNORMAL) Phosphorus (03/30/2025 12:03 AM CDT) Phosphorus, pl 1.7(L) 2.3 - 4.5 mg/dL Blood 03/30/2025 12:0 3 AM CDT 03/30/2025 12:47 AM CDT us Pierre Chen MD LAB BLOOD ORDERABLES Fi nal Result [facility] [place] [address] * Magnesium (03/30/2025 12:03 AM CDT) Magnesium 2.1 1.4 - 2.5 mg/dL Blood 03/30/2025 12:0 3 AM CDT 03/30/2025 12:47 AM CDT Pierre Chen MD LAB BLOOD ORDERABLES Fi nal Result Performing Organization Address City/[facility]/ZIP Co de Phone Number [facility] Department [place] [address] * (ABNORMAL) Basic metabolic panel (03/30/2025 12:03 AM CDT) Sodium 145 135 - 145 mmol/L Potassium, pl 4.4 3.3 - 4.9 mmol/L [facility] Comment:Repeated and Verifie d Chloride 109 97 - 110 mmol/L [facility] Comment:Repeated and Verifie d CO2 31 22 - 32 mmol/L [facility] Anion gap 5 2 - 15 mmol/L [facility] BUN 12 6 - 25 mg/dL [facility] Creatinine 0.45(L) 0.60 - 1.10 mg/dL [facility] Glucose 132 70 - 199 mg/dL [facility] Comment: Interpretive Data Fasting glucose >/= 126 mg/dl is diagnostic for diabetes. Fasting is defined as no caloric intake for at least 8 hours. Fasting glucose between 100 mg/dl to 125 mg/dl is diagnostic of prediabetes. In a patient with classic symptoms of hyperglycemia or hyperglycemic crisis, a random glucose >/= 200 mg/dl is diagnostic for diabetes. In the absence of unequivocal hyperglycemia, results should be confirmed by repeat testing. The classification and Diagnosis of Diabetes Diabetes Care 2021; 46: S19-S40. Current interpretive data was last revised 2022. Calcium 8.1(L) 8.5 - 10.3 mg/dL [facility] Blood 03/30/2025 12:0 3 AM CDT 03/30/2025 12:47 AM CDT us Pierre Chen MD LAB BLOOD ORDERABLES Fi nal Result Performing Organization Address [facility] Co de Phone Number [facility] [place] [address] * eGFR (03/29/2025 8:54 PM CDT) eGFR See Comment >=60 Comment: Credited: Sample investigated and is suggestive of an improper collection (e.g., IV fluid contamination, improper tube type). Deleted at the Request of Alondra Horan RN on 03/29/2025 22:04:04 CDT by . Interpretive Data Reference Interval Normal >/= 90 mL/min/1.73m2 Mildly decreased* 60 - 89 mL/min/1.73m2 Mildly to moderately decreased 45 - 59 mL/min/1.73m2 Moderately to severely decreased 30 - 44 mL/min/1.73m2 Severely decreased 15 - 29 mL/min/1.73m2 Kidney Failure < 15 mL/min/1.73m2 *Relative to young adult level Estimated glomerular filtration rate is determined by the 2020 CKD-EPI equation recommended by the National Kidney Foundation (A Unifying Approach to GFR Estimation: Recommendations of the NKF-ASK Task Force on Reassessing the Inclusion of Race in Diagnosing Kidney Disease, JASN 2020). The CKD-EPI equation should not be used for patients with unstable renal function and has not been validated in children and those over 70. Current interpretive data was last reviewed 2021. Blood 03/29/2025 8:54 PM CDT 03/29/2025 9:08 PM CDT us Gavin Chen DO LAB BLOOD ORDERABLES Ed ited Result - Final [facility] [place] [address] * Critical Result Callback Chemistry (03/29/2025 8:54 PM CDT) Date Notified [id number] Time Notified 2199 NEETA JUDD TestName K, Ca, Glucose NEETA JUDD Called/Read Back Telephone report made to: Alondra Horan RN on 03/29/2025 22:01:04 CDT by . NEETA JUDD Credentials EVE JUDD Called By [facility] SAMANIEGO Blood 03/29/2025 8:54 PM CDT 03/29/2025 9:08 PM CDT Gavin Chen DO LAB BLOOD ORDERABLES Fi nal Result Performing Organization Address [facility] de Phone Number [facility] [place] [address] * (ABNORMAL) CBC without differential (03/29/2025 8:54 PM CDT) Pathologist [facility] WBC 7.42 3.80 - 9.90 K/cumm Hgb 8.9(L) 11.9 - 15.5 g/dL [facility] Hct 27.1(L) 35.6 - 45.5 % [facility] Plt 146(L) 150 - 400 K/cumm [facility] MPV 9.5 9.1 - 12.3 fL [facility] RBC 2.93(L) 3.90 - 5.20 M/cumm [facility] MCV 92.5 81.3 - 96.4 fL [facility] MCH 30.4 27.1 - 33.3 pg [facility] MCHC 32.8 32.3 - 35.7 g/dL [facility] RDW CV 14.3 11.1 - 14.9 % [facility] RDW SD 48.0 35.7 - 48.1 fL [facility] NRBC abs 0.00 0.00 - 0.01 K/cumm [facility] Blood 03/29/2025 8:54 PM CDT 03/29/2025 9:09 PM CDT Gavin Chen DO LAB BLOOD ORDERABLES Fi nal Result Performing Organization Address City/[facility]/ZIP Co de Phone Number [facility] [place] [address] * Prealbumin (03/29/2025 8:54 PM CDT) Pathologist [facility] Prealbumin See Comment 20.0 - 40.0 mg/dL Comment:Credited: Sample inv estigated and is suggestive of an improper collection (e.g., IV fluid contamination, improper tube type). Deleted at the Request of Alondra Horan RN on 03/29/2025 22:04:04 CDT by . Blood 03/29/2025 8:54 PM CDT 03/29/2025 9:08 PM CDT Glendy Jiang NP LAB BLOOD ORDERABLES Edite d Result - Final Performing Organization Address [facility] de Phone Number [facility] [address] * Phosphorus (03/29/2025 8:54 PM CDT) Phosphorus, pl See Comment 2.3 - 4.5 mg/dL Comment:Credited: Sample inv estigated and is suggestive of an improper collection (e.g., IV fluid contamination, improper tube type). Deleted at the Request of Alondra Horan RN on 03/29/2025 22:04:04 CDT by . Blood 03/29/2025 8:54 PM CDT 03/29/2025 9:08 PM CDT Glendy Jiang NP LAB BLOOD ORDERABLES Edite d Result - Final Performing Organization Address [facility] de Phone Number [facility] [place] [address] * Magnesium (03/29/2025 8:54 PM CDT) Magnesium See Comment 1.4 - 2.5 mg/dL Comment:Credited: Sample inv estigated and is suggestive of an improper collection (e.g., IV fluid contamination, improper tube type). Deleted at the Request of Alondra Horan RN on 03/29/2025 22:04:04 CDT by . Blood 03/29/2025 8:54 PM CDT 03/29/2025 9:08 PM CDT Glendy Jiang [employer]UCKLOAD OWNER OPERATOR LAB BLOOD ORDERABLES Edite d Result - Final Performing Organization Address [facility] Co de Phone Number [facility] [place] [address] * Albumin (03/29/2025 8:54 PM CDT) Albumin See Comment 3.5 - 5.0 g/dL Comment:Credited: Sample inv estigated and is suggestive of an improper collection (e.g., IV fluid contamination, improper tube type). Deleted at the Request of Alondra Horan RN on 03/29/2025 22:04:04 CDT by . Blood 03/29/2025 8:54 PM CDT 03/29/2025 9:08 PM CDT Glendy Jiang TRUCKLOAD OWNER OPERATOR LAB BLOOD ORDERABLES Edite d Result - Final Performing Organization Address [facility] de Phone Number [facility] [place] [address] * Basic metabolic panel (03/29/2025 8:54 PM CDT) Pathologist [facility] Sodium See Comment 135 - 145 mmol/L Comment:Credited: Sample inv estigated and is suggestive of an improper collection (e.g., IV fluid contamination, improper tube type). Deleted at the Request of Alondra Horan RN on 03/29/2025 22:04:04 CDT by . Potassium, pl See Comment 3.3 - 4.9 mmol/L [facility] Comment: Reviewed Credited: Sample investigated and is suggestive of an improper collection (e.g., IV fluid contamination, improper tube type). Deleted at the Request of Alondra Horan RN on 03/29/2025 22:04:04 CDT by . Chloride See Comment 97 - 110 mmol/L [facility] Comment: Repeated and Verified Credited: Sample investigated and is suggestive of an improper collection (e.g., IV fluid contamination, improper tube type). Deleted at the Request of Alondra Horan RN on 03/29/2025 22:04:04 CDT by . CO2 See Comment 22 - 32 mmol/L [facility] Comment:Credited: Sample inv estigated and is suggestive of an improper collection (e.g., IV fluid contamination, improper tube type). Deleted at the Request of Alondra Horan RN on 03/29/2025 22:04:04 CDT by . Anion gap See Comment 2 - 15 mmol/L [facility] Comment: Reviewed Credited: Sample investigated and is suggestive of an improper collection (e.g., IV fluid contamination, improper tube type). Deleted at the Request of Alondra Horan RN on 03/29/2025 22:04:04 CDT by . BUN See Comment 6 - 25 mg/dL [facility] Comment:Credited: Sample inv estigated and is suggestive of an improper collection (e.g., IV fluid contamination, improper tube type). Deleted at the Request of Alondra Horan RN on 03/29/2025 22:04:04 CDT by . Creatinine See Comment 0.60 - 1.10 mg/dL [facility] Comment:Credited: Sample inv estigated and is suggestive of an improper collection (e.g., IV fluid contamination, improper tube type). Deleted at the Request of Alondra Horan RN on 03/29/2025 22:04:04 CDT by . Glucose See Comment 70 - 199 mg/dL [facility] Comment: Interpretive Data Fasting glucose >/= 126 mg/dl is diagnostic for diabetes. Fasting is defined as no caloric intake for at least 8 hours. Fasting glucose between 100 mg/dl to 125 mg/dl is diagnostic of prediabetes. In a patient with classic symptoms of hyperglycemia or hyperglycemic crisis, a random glucose >/= 200 mg/dl is diagnostic for diabetes. In the absence of unequivocal hyperglycemia, results should be confirmed by repeat testing. The classification and Diagnosis of Diabetes Diabetes Care 2021; 46: S19-S40. Current interpretive data was last revised 2022. Reviewed Credited: Sample investigated and is suggestive of an improper collection (e.g., IV fluid contamination, improper tube type). Deleted at the Request of Alondra Horan RN on 03/29/2025 22:04:04 CDT by . Calcium See Comment 8.5 - 10.3 mg/dL [facility] Comment: Reviewed Credited: Sample investigated and is suggestive of an improper collection (e.g., IV fluid contamination, improper tube type). Deleted at the Request of Alondra Horan RN on 03/29/2025 22:04:04 CDT by . Blood 03/29/2025 8:54 PM CDT 03/29/2025 9:08 PM CDT Gavin Chen DO LAB BLOOD ORDERABLES Ed ited Result - Final Performing Organization Address [facility] Co de Phone Number [facility] [place] [address] * POCT glucose (03/29/2025 2:33 PM CDT) Glucose, POC 135 70 - 199 mg/dL Blood 03/29/2025 2:33 PM CDT 03/29/2025 2:33 PM CDT Gavin Chen DO LAB POCT ORDERABLES - D EVICE Final Result Performing Organization Address [facility] Co de Phone Number [facility] [place] [address] * eGFR (03/29/2025 8:44 AM CDT) eGFR >90 >=60 mL/min/1. 73 m2 Comment: Interpretive Data Reference Interval Normal >/= 90 mL/min/1.73m2 Mildly decreased* 60 - 89 mL/min/1.73m2 Mildly to moderately decreased 45 - 59 mL/min/1.73m2 Moderately to severely decreased 30 - 44 mL/min/1.73m2 Severely decreased 15 - 29 mL/min/1.73m2 Kidney Failure < 15 mL/min/1.73m2 *Relative to young adult level Estimated glomerular filtration rate is determined by the 2020 CKD-EPI equation recommended by the National Kid[employer] (A Unifying Approach to GFR Estimation: Recommendations of the NKF-ASK Task Force on Reassessing the Inclusion of Race in Diagnosing Kidney Disease, JASN 2020). The CKD-EPI equation should not be used for patients with unstable renal function and has not been validated in children and those over 70. Current interpretive data was last reviewed 2021. Blood 03/29/2025 8:44 AM CDT 03/29/2025 8:59 AM CDT us Glendy Jiang NP LAB BLOOD ORDERABLES Final Result [facility] [place] [address] * (ABNORMAL) Differential, auto (03/29/2025 8:44 AM CDT) Neutrophil abs 9.68(H) 1.50 - 6.50 K/cumm Imm gran abs 0.02 0.00 - 0.10 K/cumm [facility] Lymphocyte abs 0.39(L) 0.80 - 3.30 K/cumm [facility] Monocyte abs 1.34(H) 0.20 - 0.80 K/cumm [facility] Eosinophil abs 0.00 0.00 - 0.50 K/cumm [facility] Basophil abs 0.01 0.00 - 0.10 K/cumm [facility] Neutrophil pct 84.6 % [facility] Comment: Interpretive Data Percent cell count reference ranges are not reported, since discordance with absolute values may lead to misinterpretation of CBC data. Current Interpretive Data was last revised on 2018. Imm gran pct 0.2 % [facility] Comment: Interpretive Data Percent cell count reference ranges are not reported, since discordance with absolute values may lead to misinterpretation of CBC data. Current Interpretive Data was last revised on 2018. Lymphocyte pct 3.4 % [facility] Comment: Interpretive Data Percent cell count reference ranges are not reported, since discordance with absolute values may lead to misinterpretation of CBC data. Current Interpretive Data was last revised on 2018. Monocyte pct 11.7 % [facility] Comment: Interpretive Data Percent cell count reference ranges are not reported, since discordance with absolute values may lead to misinterpretation of CBC data. Current Interpretive Data was last revised on 2018. Eosinophil pct 0.0 % [facility] Comment: Interpretive Data Percent cell count reference ranges are not reported, since discordance with absolute values may lead to misinterpretation of CBC data. Current Interpretive Data was last revised on 2018. Basophil pct 0.1 % [facility] Comment: Interpretive Data Percent cell count reference ranges are not reported, since discordance with absolute values may lead to misinterpretation of CBC data. Current Interpretive Data was last revised on 2018. Blood 03/29/2025 8:44 AM CDT 03/29/2025 9:00 AM CDT us Glendy Jiang TRUCKLOAD OWNER OPERATOR LAB BLOOD ORDERABLES Final Result [facility] [place] [address] * (ABNORMAL) CBC with auto differential (03/29/2025 8:44 AM CDT) WBC 11.44(H) 3.80 - 9.90 K/cumm Hgb 11.2(L) 11.9 - 15.5 g/dL [facility] Comment:Hemoglobin delta due to surgical procedure. Hct 33.3(L) 35.6 - 45.5 % [facility] Plt 177 150 - 400 K/cumm [facility] MPV 9.4 9.1 - 12.3 fL [facility] RBC 3.68(L) 3.90 - 5.20 M/cumm [facility] MCV 90.5 81.3 - 96.4 fL [facility] MCH 30.4 27.1 - 33.3 pg [facility] MCHC 33.6 32.3 - 35.7 g/dL [facility] RDW CV 14.0 11.1 - 14.9 % [facility] RDW SD 46.7 35.7 - 48.1 fL [facility] NRBC abs 0.00 0.00 - 0.01 K/cumm [facility] Blood 03/29/2025 8:44 AM CDT 03/29/2025 9:00 AM CDT us Glendy Jiang NP LAB BLOOD ORDERABLES Final Result [facility] [place] [address] * (ABNORMAL) Basic metabolic panel (03/29/2025 8:44 AM CDT) Sodium 143 135 - 145 mmol/L Potassium, pl 3.2(L) 3.3 - 4.9 mmol/L [facility] Chloride 102 97 - 110 mmol/L [facility] CO2 30 22 - 32 mmol/L [facility] Anion gap 11 2 - 15 mmol/L [facility] BUN 14 6 - 25 mg/dL [facility] Creatinine 0.46(L) 0.60 - 1.10 mg/dL [facility] Glucose 126 70 - 199 mg/dL [facility] Comment: Interpretive Data Fasting glucose >/= 126 mg/dl is diagnostic for diabetes. Fasting is defined as no caloric intake for at least 8 hours. Fasting glucose between 100 mg/dl to 125 mg/dl is diagnostic of prediabetes. In a patient with classic symptoms of hyperglycemia or hyperglycemic crisis, a random glucose >/= 200 mg/dl is diagnostic for diabetes. In the absence of unequivocal hyperglycemia, results should be confirmed by repeat testing. The classification and Diagnosis of Diabetes Diabetes Care 2021; 46: S19-S40. Current interpretive data was last revised 2022. Calcium 8.0(L) 8.5 - 10.3 mg/dL [facility] Blood 03/29/2025 8:44 AM CDT 03/29/2025 8:59 AM CDT us Glendy Jiang NP LAB BLOOD ORDERABLES Final Result [facility] [place] [address] * XR Abdomen 1 View AP (03/29/2025 7:35 AM CDT) Anatomical Region Laterality Modality Body, Abdomen N/A Digital Radiogra phy 03/29/2025 8:58 AM CDT Impressions 03/29/2025 8:58 AM CDT The gastric tube is coiled within the known intrathoracic stomach in setting of known diaphragmatic hernia. Decreased gaseous distention of stomach. 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 Contrast in the collecting systems and urinary bladder. Electronically signed by: Patito Peguero M.D. Narrative 03/29/2025 8:58 AM CDT EXAMINATION: Abdomen, one view. HISTORY: Check tube placement. COMPARISON: 03/29/2025 Procedure Note Patito Peguero MD - 03/29/2025 EXAMINATION: Abdomen, one view. HISTORY: Check tube placement. COMPARISON: 03/29/2025 IMPRESSION: The gastric tube is coiled within the known intrathoracic stomach in setting of known diaphragmatic hernia. Decreased gaseous distention of stomach. 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 Contrast in the collecting systems and urinary bladder. Electronically signed by: Patito Peguero M.D. us Glendy Jiang NP IMG XR PROCEDURES Final Re sult * Surgical pathology (03/29/2025 2:41 AM CDT) Tissue (Small bowel, resection non- tumor) 03/29/2025 2:41 AM CDT Comment:A.) Small bowel Narrative PATHOLOGY [facility] - 04/01/2025 3:13 PM CDT EPIC results best viewed via link to PDF [facility] [place] [address] Note to Patients: This report may contain a detailed description of human tissue sent by a health care provider to the laboratory for pathologic evaluation. The content of this report is essential for diagnosis and may provide important critical findings. This information may be unfamiliar to patients to review without a medical professional present. It is advised that the patient review this report in the presence of a health care provider who can answer questions and explain the details. SURGICAL PATHOLOGY REPORT FINAL Patient Name: AILEEN EAST Gender: F : 1940 (Age: 84) Address: [address] [place], [place] [id number] Hospital #: [id number] Taken:03/29/2025 Received:03/29/2025 Reported: 04/01/2025 Patient Type: [facility] Inpatient Service: Emergency Location: [place] [address] Physician(s): Abdirahman Villa Dr., M.D. Diagnosis: Small bowel, resection - Small bowel with transmural ischemia - Surgical margins viable alpo/04/01/2025 10:10 By this signature, I attest that the above diagnosis is based upon my personal examination of the slides(and/or other material indicated in the diagnosis). Miguel Maya M.D. Report Electronically Reviewed and Signed Out By Miguel Maya M.D. 04/01/2025 15:13:33 Dot Gutierrez M.D. History: The patient is a 84-year-old woman with an incarcerated hernia. Operative Procedure: Repair inguinal hernia Specimen(s) Received: A: small bowell Gross Description: Received in formalin labeled with patient identifiers and small bowel is an unoriented segment of small bowel (9.2 cm in length and 1.5-3.2 cm in diameter) with two opposing stapled margins. The serosal surface is dusky purple. The specimen is opened showing purple pink mucosal folds and a centrally located ulcerated area of stricture (0.9 cm in diameter and 0.7 cm in length) located 3.0 cm from the closest margin. There are no focal masses. Plant Operations Engineer sections are submitted as follows: A1 Resection margin closest to the area of stricture, shaved A2 Opposite resection margin, shaved A3 Longitudinal sections from the area of stricture including ulcerated bowel mucosa Gabriele 1. bryant03/30/2025 11:59 PA(s): WILL Barajas (ASCP)CM By this signature, I attest that the above diagnosis is based upon my personal examination of the slides(and/or other material). Addenda/Procedures The performance characteristics of some immunohistochemical stains, fluorescence in-situ hybridization tests and immunophenotyping by flow cytometry cited in this report (if any) were determined by the Surgical Pathology and Flow Cytometry Departments at [facility] as part of an ongoing water quality technician program and in compliance with federally mandated regulations drawn from the Clinical Laboratory Improvement Act of 1988 (CLIA '88). Some of these tests rely on the use of analyte specific reagents and are subject to specific labeling requirements by the US Food and Drug Administration. Such diagnostic tests may only be performed in a facility that is certified by the Department of Health and Human Services as a high complexity laboratory under CLIA '88. The FDA has determined that such clearance or approval is not necessary. This test is used for clinical purposes. It should not be regarded as investigational or for research. Nevertheless, federal rules concerning the medical use of analyte specific reagents require that the following disclaimer be attached to the report: This test was developed and its performance characteristics determined by the Surgical Pathology and Flow Cytometry Departments of [facility]. It has not been cleared or approved by the U. S. Food and Drug Administration. IMAGES AND SCANNED DOCUMENTS, IF INCLUDED, ONLY VIEWABLE IN PDF VERSION OF REPORT us Gavin Chen DO LAB PATHOLOGY ORDERABLE S Final Result PATHOLOGY [facility] 3rd Floor [place], [place] [phone] * OK AN PROCEDURE PLACEHOLDER (03/29/2025 1:21 AM CDT) Marylu Spencer CRNA - 03/29/2025 1:21 AM CDT Marylu Ramires CRNA 03/29/2025 1:22 AM Peripheral IV Catheter Patient location: OR Staff: Placed by: JONELLE: Marylu Ramires CRNA Preprocedure prep: Prep solution: chlorhexadine PPE: provider hat/mask and gloves PIV line: Laterality: left Site: wrist Catheter size: 18 g Technique: anatomical landmarks Procedure details: good blood return Number of attempts: 1 Assessment: Events: patient tolerated procedure well with no complications Vanessa Osorio MD ANESTHESIA ORDERABLES Final Resu lt * OK AN ELECTIVE ENDOTRACHEAL AIRWAY, OK AN PROCEDURE PLACEHOLDER (03/29/2025 1:21 AM CDT) Narrative Marylu Ramires CRNA - 03/29/2025 1:21 AM CDT Marylu Ramires CRNA 03/29/2025 1:21 AM Airway Patient location: OR Urgency: elective Indications for airway management: anesthesia Difficult airway: no Staff: Supervising provider: Vanessa Osorio MD Placed by: BARREL LEVELER: Marylu Ramires CRNA Emergent airway documentation: Risks and benefits discussed: yes Consent obtained: yes Consent given by: patient Airway prep: Preoxygenated: yes Patient position: sniffing Mask difficulty assessment: 0 - not attempted Spontaneous ventilation during airway: absent Sedation level during airway: GA Final airway details: Final airway type: endotracheal airway Tube type: ETT ETT size: 7.0 mm Cuffed: yes Technique used for successful ETT placement: video laryngoscopy Insertion site: oral Video blade type: Mondragon Blade size: 3 Cormack-Lehane (video): grade I - full view of glottis Cuff volume: 8 mL Cuff inflated with: air ETT to lips: 23 cm Placement verified by: auscultation and CO2 detection Airway secured with: silk tape Number of attempts: 1 Planned trial extubation: yes Vanessa Osorio MD ANESTHESIA ORDERABLES Final Resu lt * XR Abdomen Ap 1 Vw (03/29/2025 12:16 AM CDT) Anatomical Region Laterality Modality Body, Abdomen N/A Computed Radiogr aphy 03/29/2025 12:2 2 AM CDT Impressions 03/29/2025 7:53 AM CDT Gastric tube terminates with tip and side-port overlying the intrathoracic stomach in setting of known diaphragmatic hernia. Partially imaged marked gastric distention. Contrast in the renal collecting systems. 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 Dictated by: Sangita Mueller MD The radiology attending physician has personally reviewed this study, and had reviewed and/or edited this written report and agrees with it. Electronically signed by: Curtis Jay M.D. Narrative 03/29/2025 7:53 AM CDT EXAMINATION: Abdomen, one view. HISTORY: Check tube placement. COMPARISON: None Procedure Note Curtis Jay MD - 03/29/2025 EXAMINATION: Abdomen, one view. HISTORY: Check tube placement. COMPARISON: None IMPRESSION: Gastric tube terminates with tip and side-port overlying the intrathoracic stomach in setting of known diaphragmatic hernia. Partially imaged marked gastric distention. Contrast in the renal collecting systems. 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 Dictated by: Sangita Mueller MD The radiology attending physician has personally reviewed this study, and had reviewed and/or edited this written report and agrees with it. Electronically signed by: Curtis Jay M.D. Flo Whitaker MD IMG XR PROCEDURES Final Res ult * (ABNORMAL) Troponin I high-sensitivity 2-hour (03/28/2025 11:46 PM CDT) Trop I hs 22(H) <=17 ng/L Comment: Interpretive Data For further hscTnI resources including the diagnostic algorithm and an aid in interpretation, copy and paste this link: https://bjhlab.testcatalog.org/show/[email or web address] Current Interpretive Data last revised 2020. Trop I hs delta 0 ng/L [facility] Trop I hs interp Insignificant [facility] Blood 03/28/2025 11:4 6 PM CDT 03/29/2025 12:42 AM CDT Flo Whitaker MD LAB BLOOD ORDERABLES Final Result [facility] [place] [address] * OK CRITICAL CARE ILL/INJURED PATIENT INIT 30-74 MIN (03/28/2025 10:51 PM CDT) Narrative Aaron Sorenson MD - 03/28/2025 10:51 PM CDT Aaron Sorenson MD 03/28/2025 10:51 PM Critical Care Performed by: Aaron Sorenson MD Authorized by: Aaron Sorenson MD Critical care provider statement: As reflected in the history, physical exam, orders, notes, and/or MDM, I was personally present while the patient was critically ill and provided critical care services for 40 minutes, excluding time involved in separately billable procedures. Critical care was necessary to treat or prevent imminent or life-threatening deterioration of the following condition(s): hypoxic respiratory failure and severe respiratory condition acute bowel obstruction and severe gastrointestinal condition Critical care was time spent by me providing the following: continuous telemetry, continuous pulse oximetry, interpretation of bedside monitors, imaging, and arterial/venous lab draws, serial bedside patient exams, serial laboratory checks and resuscitation with fluids decision regarding NPO status, active monitoring of intake/output status, serial abdominal exams and gastric tube placement and interpretation of results/output supplemental oxygen I provided emergent necessary critical care medicine services to this patient. I ordered and reviewed test results and/or imaging studies. I spent time discussing the management of this critically ill patient with consultants and the medical staff. I spent time discussing the management and therapeutic options for this critically ill patient with the patient themselves or with the appropriate designated surrogate decision-maker. I spent time documenting in the medical record. Aaron Sorenson MD IN CLINIC/BED SIDE ORDERABLES Final Result * CT Chest Abdomen Pelvis W Contrast (03/28/2025 10:33 PM CDT) Anatomical Region Laterality Modality Body N/A Computed Tomogra phy 03/28/2025 10:5 6 PM CDT Impressions 03/29/2025 5:10 AM CDT 1. High-grade small bowel obstruction with transition point at a right femoral hernia with dilated, obstructed small bowel concerning for strangulated hernia. Fluid along the small bowel loops is nonspecific, but correlation with lactate levels is recommended to exclude underlying ischemia. No definite perforation. 2. 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 Alternatively, the degree of obstruction could be confounded by increased dilation and superiorly directed mass effect from the high-grade small bowel obstruction. 3. 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 This could be further evaluated with nonemergent MRCP once the clinical status of the patient has improved. 4. Unchanged nodular soft tissue thickening of the left adrenal gland which is indeterminant. The Critical results were discussed with Dr. Whitaker by Dr. Judd on 03/28/2025 at 10:51 PM Dictated by: Alea Judd MD The radiology attending physician has personally reviewed this study, and had reviewed and/or edited this written report and agrees with it. Electronically signed by: Becki Daigle M.D. Narrative 03/29/2025 5:10 AM CDT EXAMINATION: Computed tomography of the chest, abdomen and pelvis with intravenous contrast HISTORY: Concern for obstructive hernia TECHNIQUE: Transaxial computed tomographic images of the chest, abdomen and pelvis were obtained with intravenous contrast according to the standard protocol after the uneventful administration of 70 mL Opti-Ray 350 intravenous contrast. COMPARISON: 02/20/2025 FINDINGS: Chest: Atelectasis along the left upper lung and left lower lobe. Tree-in-bud nodularity in the posterior right upper lobe with linear calcification is favored to be infectious/inflammatory. No pleural effusion. No consolidation. There is a large left diaphragmatic hernia containing an intrathoracic stomach, with high-grade transition point at the level of the pylorus, series 2 image 123. The duodenum distal to this is relatively decompressed. There is rightward mediastinal shift from this large obstructed intrathoracic stomach. The hernia neck measures approximately 5.2 cm. Abdomen/Pelvis: Unchanged cysts and additional hypoattenuating lesions that are too small to fully characterize throughout the liver. Patent portal and hepatic veins. Normal spleen. The pancreas is herniated into the left anterior diaphragmatic hernia, with similar cystic dilation of the pancreatic uncinate process duct up to 0.5 cm which may be from secondary obstruction from extrinsic compression hernia. 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 The left adrenal gland is significantly thickened, unchanged. The right adrenal gland is normal. Multiple bilateral peripelvic cysts. There are multiple dilated obstructed loops of small bowel with transition point at the right femoral space. There is mild mucosal hyperenhancement of the loops of small bowel, for example series 2 image 249. The small bowel distal to this obstruction is decompressed, series 2 image 259. Colonic diverticulosis. Small volume ascites. Severe colonic diverticulosis. No large vessel occlusion. No pneumoperitoneum. Normal caliber abdominal aorta with mild to moderate atherosclerotic disease. No suspicious osseous lesion. Procedure Note Becki Daigle MD - 03/29/2025 EXAMINATION: Computed tomography of the chest, abdomen and pelvis with intravenous contrast HISTORY: Concern for obstructive hernia TECHNIQUE: Transaxial computed tomographic images of the chest, abdomen and pelvis were obtained with intravenous contrast according to the standard protocol after the uneventful administration of 70 mL Opti-Ray 350 intravenous contrast. COMPARISON: 02/20/2025 FINDINGS: Chest: Atelectasis along the left upper lung and left lower lobe. Tree-in-bud nodularity in the posterior right upper lobe with linear calcification is favored to be infectious/inflammatory. No pleural effusion. No consolidation. There is a large left diaphragmatic hernia containing an intrathoracic stomach, with high-grade transition point at the level of the pylorus, series 2 image 123. The duodenum distal to this is relatively decompressed. There is rightward mediastinal shift from this large obstructed intrathoracic stomach. The hernia neck measures approximately 5.2 cm. Abdomen/Pelvis: Unchanged cysts and additional hypoattenuating lesions that are too small to fully characterize throughout the liver. Patent portal and hepatic veins. Normal spleen. The pancreas is herniated into the left anterior diaphragmatic hernia, with similar cystic dilation of the pancreatic uncinate process duct up to 0.5 cm which may be from secondary obstruction from extrinsic compression hernia. 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 The left adrenal gland is significantly thickened, unchanged. The right adrenal gland is normal. Multiple bilateral peripelvic cysts. There are multiple dilated obstructed loops of small bowel with transition point at the right femoral space. There is mild mucosal hyperenhancement of the loops of small bowel, for example series 2 image 249. The small bowel distal to this obstruction is decompressed, series 2 image 259. Colonic diverticulosis. Small volume ascites. Severe colonic diverticulosis. No large vessel occlusion. No pneumoperitoneum. Normal caliber abdominal aorta with mild to moderate atherosclerotic disease. No suspicious osseous lesion. IMPRESSION: 1. High-grade small bowel obstruction with transition point at a right femoral hernia with dilated, obstructed small bowel concerning for strangulated hernia. Fluid along the small bowel loops is nonspecific, but correlation with lactate levels is recommended to exclude underlying ischemia. No definite perforation. 2. 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 Alternatively, the degree of obstruction could be confounded by increased dilation and superiorly directed mass effect from the high-grade small bowel obstruction. 3. 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 This could be further evaluated with nonemergent MRCP once the clinical status of the patient has improved. 4. Unchanged nodular soft tissue thickening of the left adrenal gland which is indeterminant. The Critical results were discussed with Dr. Whitaker by Dr. Judd on 03/28/2025 at 10:51 PM Dictated by: Alea Judd MD The radiology attending physician has personally reviewed this study, and had reviewed and/or edited this written report and agrees with it. Electronically signed by: Becki Daigle M.D. Flo Whitaker MD IMG CT PROCEDURES Final Res ult * POCT lactate (03/28/2025 9:46 PM CDT) Lactate POC i-STAT 1.1 0.7 - 2.0 mmol/L Blood 03/28/2025 9:46 PM CDT 03/28/2025 9:46 PM CDT Aaron Sorenson MD LAB POCT SAMINA CORTES - DEVICE Final Result Performing Organization Address City/State/[facility] Co de Phone Number [facility] [place] [address] * ECG 12-LEAD (03/28/2025 9:36 PM CDT) Narrative [facility] - 03/28/2025 9:36 PM CDT Aaron Sorenson MD 03/28/2025 9:39 PM ECG 12 lead Date/Time: 03/28/2025 9:36 PM Performed by: Aaron Sorenson MD Authorized by: Flo Whitaker MD Comments: No prior available at time of interpretation. NSR w/ short OK. Slight ST depression in inferolateral leads with no prior available to compare. No ST-elevation. Intervals are normal. Normal axis. us Flo Whitaker MD ECG ORDERABLES Final Resul t Performing Organization Address [facility] Co de Phone Number [facility] * (ABNORMAL) Troponin I high-sensitivity series (baseline, 2hr, 4hr, 6hr) (03/28/2025 9:24 PM CDT) Pathologist [facility] Trop I hs 22(H) <=17 ng/L Comment: Interpretive Data For further [facility] resources including the diagnostic algorithm and an aid in interpretation, copy and paste this link: [email or web address].[email or web address].org/[email or web address] Current Interpretive Data last revised 2020. Blood 03/28/2025 9:24 PM CDT 03/28/2025 9:41 PM CDT us Flo Whitaker MD LAB BLOOD ORDERABLES Final Result Performing Organization Address [facility] Co de Phone Number [facility] [place] [address] * eGFR (03/28/2025 9:24 PM CDT) Pathologist [facility] eGFR >90 >=60 mL/min/1. 73 m2 Comment: Interpretive Data Reference Interval Normal >/= 90 mL/min/1.73m2 Mildly decreased* 60 - 89 mL/min/1.73m2 Mildly to moderately decreased 45 - 59 mL/min/1.73m2 Moderately to severely decreased 30 - 44 mL/min/1.73m2 Severely decreased 15 - 29 mL/min/1.73m2 Kidney Failure < 15 mL/min/1.73m2 *Relative to young adult level Estimated glomerular filtration rate is determined by the 2020 CKD-EPI equation recommended by the National Kidney Foundation (A Unifying Approach to GFR Estimation: Recommendations of the NKF-ASK Task Force on Reassessing the Inclusion of Race in Diagnosing Kidney Disease, JASN 2020). The CKD-EPI equation should not be used for patients with unstable renal function and has not been validated in children and those over 70. Current interpretive data was last reviewed 2021. Blood 03/28/2025 9:24 PM CDT 03/28/2025 9:41 PM CDT Flo Whitaker MD LAB BLOOD ORDERABLES Final Result [facility] [place] [address] * (ABNORMAL) Differential, auto (03/28/2025 9:24 PM CDT) Neutrophil abs 13.17(H) 1.50 - 6.50 K/cumm Imm gran abs 0.09 0.00 - 0.10 K/cumm [facility] Lymphocyte abs 0.77(L) 0.80 - 3.30 K/cumm [facility] Monocyte abs 1.78(H) 0.20 - 0.80 K/cumm [facility] Eosinophil abs 0.01 0.00 - 0.50 K/cumm [facility] Basophil abs 0.03 0.00 - 0.10 K/cumm [facility] Neutrophil pct 83.0 % [facility] Comment: Interpretive Data Percent cell count reference ranges are not reported, since discordance with absolute values may lead to misinterpretation of CBC data. Current Interpretive Data was last revised on 2018. Imm gran pct 0.6 % [facility] Comment: Interpretive Data Percent cell count reference ranges are not reported, since discordance with absolute values may lead to misinterpretation of CBC data. Current Interpretive Data was last revised on 2018. Lymphocyte pct 4.9 % [facility] Comment: Interpretive Data Percent cell count reference ranges are not reported, since discordance with absolute values may lead to misinterpretation of CBC data. Current Interpretive Data was last revised on 2018. Monocyte pct 11.2 % [facility] Comment: Interpretive Data Percent cell count reference ranges are not reported, since discordance with absolute values may lead to misinterpretation of CBC data. Current Interpretive Data was last revised on 2018. Eosinophil pct 0.1 % [facility] Comment: Interpretive Data Percent cell count reference ranges are not reported, since discordance with absolute values may lead to misinterpretation of CBC data. Current Interpretive Data was last revised on 2018. Basophil pct 0.2 % [facility] Comment: Interpretive Data Percent cell count reference ranges are not reported, since discordance with absolute values may lead to misinterpretation of CBC data. Current Interpretive Data was last revised on 2018. Blood 03/28/2025 9:24 PM CDT 03/28/2025 9:41 PM CDT Flo Whitaker MD LAB BLOOD ORDERABLES Final Result [facility] [place] [address] * (ABNORMAL) Pro B-type natriuretic peptide (03/28/2025 9:24 PM CDT) NT-proBNP 808(H) <=450 pg/mL Comment: Interpretive Comments: A. Dyspnea in Acute Care Setting All Ages: < 300 pg/ml, acute heart failure unlikely. < 50 yrs: 300 - 450 pg/ml, further investigation warranted. > 450 pg/ml, acute heart failure likely. 50 - 74 yrs: 300 - 900 pg/ml, further investigation warranted. > 900 pg/ml, acute heart failure likely . > or = 75 yrs: 450 - 1800 pg/ml, further investigation warranted. > 1800 pg/ml, acute heart failure likely. B. Non-acute Setting < 75 yrs < 125 pg/ml, rules out heart failure. > or = 125 pg/ml, further investigation warranted. > or = 75 yrs < 450 pg/ml, rules out heart failure. > or = 450 pg/ml, further investigation warranted. - Knowledge of each individual patient's NT-proBNP range may be more useful than using similar cut-points for every patient. Please note that marked elevations in NT-proBNP levels may be observed in state other than Left Ventricular Congestive Failure, including: acute coronary syndromes, right heart strain/failure (including pulmonary embolism and cor pulmonale), critical illness, renal failure, as well as advanced age. - References: 1. Sherry MACEDO et.al. Eur Heart J. 2006:27:330-337. 2. Lisa RW, Enrike DUENAS. J. AM Amber Cardiol: Cardiovasc Imag. 2009;2: 216- 225. Interpretive Data Last Revised Date: 2018. Blood 03/28/2025 9:24 PM CDT 03/28/2025 9:41 PM CDT Flo Whitaker MD LAB BLOOD ORDERABLES Final Result [facility] [place] [address] * (ABNORMAL) CBC with auto differential (03/28/2025 9:24 PM CDT) Pathologist [facility] WBC 15.85(H) 3.80 - 9.90 K/cumm Hgb 14.5 11.9 - 15.5 g/dL [facility] Hct 43.5 35.6 - 45.5 % [facility] Plt 274 150 - 400 K/cumm [facility] MPV 9.9 9.1 - 12.3 fL [facility] RBC 4.78 3.90 - 5.20 M/cumm [facility] MCV 91.0 81.3 - 96.4 fL [facility] MCH 30.3 27.1 - 33.3 pg [facility] MCHC 33.3 32.3 - 35.7 g/dL [facility] RDW CV 14.0 11.1 - 14.9 % [facility] RDW SD 46.7 35.7 - 48.1 fL [facility] NRBC abs 0.00 0.00 - 0.01 K/cumm [facility] Blood 03/28/2025 9:24 PM CDT 03/28/2025 9:41 PM CDT Flo Whitaker MD LAB BLOOD ORDERABLES Final Result [facility] [place] [address] * (ABNORMAL) Comprehensive metabolic panel (03/28/2025 9:24 PM CDT) Sodium 142 135 - 145 mmol/L Potassium, pl 3.1(L) 3.3 - 4.9 mmol/L [facility] Comment:Hemolyzed; Potassium value may be falsely elevated by as much as 0.3-0.5 mmol/L. Suggest redraw and reanalysis. Chloride 101 97 - 110 mmol/L [facility] CO2 31 22 - 32 mmol/L [facility] Anion gap 10 2 - 15 mmol/L [facility] BUN 20 6 - 25 mg/dL [facility] Creatinine 0.50(L) 0.60 - 1.10 mg/dL [facility] Glucose 144 70 - 199 mg/dL [facility] Comment: Interpretive Data Fasting glucose >/= 126 mg/dl is diagnostic for diabetes. Fasting is defined as no caloric intake for at least 8 hours. Fasting glucose between 100 mg/dl to 125 mg/dl is diagnostic of prediabetes. In a patient with classic symptoms of hyperglycemia or hyperglycemic crisis, a random glucose >/= 200 mg/dl is diagnostic for diabetes. In the absence of unequivocal hyperglycemia, results should be confirmed by repeat testing. The classification and Diagnosis of Diabetes Diabetes Care 202; 46: S19-S40. Current interpretive data was last revised 2022. Calcium 9.2 8.5 - 10.3 mg/dL [facility] Bilirubin, total 0.5 0.1 - 1.2 mg/dL [facility] Protein, pl 6.5 6.5 - 8.5 g/dL [facility] Albumin 4.0 3.5 - 5.0 g/dL [facility] Alk phos 46 40 - 130 Units/L [facility] ALT 18 7 - 45 Units/L [facility] AST 26 10 - 45 Units/L [facility] Comment:Hemolyzed; result ma y be falsely elevated Blood 03/28/2025 9:24 PM CDT 03/28/2025 9:41 PM CDT Flo Whitaker MD LAB BLOOD ORDERABLES Final Result [facility] [place] [address] from Last 3 Months Insurance MEDICARE [facility] MEDICARE SUPPLEMENT MEDICARE [facility] MEDICARE SUPPLEMENT Advance Directives For more information, please contact: [phone] * LIMITED - No CPR (Latest Code Status on File) Date Activated Date Inactivated Comments 03/29/2025 6:12 AM 04/02/2025 6:57 PM Care Teams Landing Scaler Relationship Specialty Start Date End Date Nicolás Azul MD [address] [place] [address] [place] [address] PCP - General Internal Medicine 02/11/25
--- OUTSIDE RECORDS SUMMARY | 2025-06-05 12:12 | XMS_ITS | Continuity of Care Document ---
Author Organization [facility] Address [address] [place] [address] Phone Care Team Providers Care Latex Caster Name Role Phone Seth Pinzon Unavailable Unavailable Procedures Procedure Date Office/outpatient Visit, Est Office/outpatient Visit, Est No Script Eye Exam & Treatment Office/outpatient Visit, Est Advance Directives Directive Yes / No Effective Date File Name No Information Encounters Encounter Description Practice Location Reason(s) For Visit Diagnoses Date Provider Providers Copied on Encounter Office/outpat ient Visit, [facility], [address] [place] [address] [address], [place], [place], [id number], tel:[phone] [facility] No Information [phone] Alberta Ann. [address] , [address], [place], [place], [facility], . tel:[phone] Office/outpat ient Visit, [facility] [place] [facility], [address] [place] [address] [address], [place], [place], [id number], [place] tel:[phone] [facility] [place] No Information 2-200 9 Alberta Ann. [address] , [address], [place], [place], [facility], [place]. tel:[phone] [facility], [address] [place] [address] [address], [place], [place], [id number], tel:[phone] [facility] No Information 1200 8 Doisy Ed[address]. [address] , [address], [place], [address], [place]. tel:[phone] Office/outpat ient Visit, [facility], [address], [place], [place], [id number], [place] tel:[phone] [facility] No Information 8200 7 Alberta Ann. [address] , [address], [place], [address], [place]. tel:[phone] Family History Family Member Type Diagnosis Age At Onset No Information Payers Payer name Insurance type Covered democrat ID Authoriza tile(s) [place] [id number] [facility] CI [id number] Social History Type Description Quantity Date Captured Comments Sex Female Smoking Status No Information Chief Complaint And Reason For Visit No Information Reason For Referral Reason For Referral No Information History Of Present Illness Encounter Date Complaint History Of Prese nt Illness No Information Functional Status Date Functional Assessmen t No Information Instructions Date Instruction Additional Infor mation No Information Assessments Type Assessment Date No Information Patient Care Teams Name Effective Dates (start - stop) Status Members No Information
--- OUTSIDE RECORDS SUMMARY | 2025-06-05 12:12 | XMS_ITS | Clinical Summary ---
Author Organization [facility] 2 Address [address] [place] [address] Care Team Providers Care Sales And Retail Management Recruiter Name Role Phone Nicolás Azul MD Primary Care Provider [phone] Allergies No known active allergies Medications aspirin [...] for diarrhea 30 capsule 04/02/2025 Active multivit dcudjxbo-ixhq-I A-calcium (THERA-M) 9 mg iron-400 mcg tablet [...] & Plan (03/29/2025 9:31 AM CDT): 03/29 epic dispense report reviewed and updated in ADMISSIONS [...] (held while NPO) Care previously established with [facility] (Dr. Ceron), last seen [...] AM CDT): LEFT inguinal hernia repair (02/2025, [facility]) Hiatal hernia 03/29/2025 Assessment & Plan (04/02/2025 11:11 AM CDT): Care established with Dr. Lombardo, last seen 03/11 for symptomatic hiatal hernia Hiatal Hernia: Reached out to Dr. Lombardo's team prior to discharge to help coordinate outpatient preop work up. Please call [phone] to make a follow up appointment with Dr. 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 Floor 5 [place] [phone] Ellie Calles NP 04/21/2025 Telephone [facility] [address] [facility] Medical Office Building 4, [address] [place] [phone] VeronicaNatali, RMA 04/21/2025 Telephone [facility] [address] [place] [address] Medical Office Building [address], [address] [place] [address] Dust, DICKSON Arellano GI Preprocedure 04/14/2025 2:00 PM CDT [facility]medicine [facility] 12th [place] [address] [place] [phone] Rhina Cox, SOCORRO S/P inguinal hernia repair, follow-up exam (Primary Dx) 04/08/2025 Telephone [facility] [address] [facility] [address] [place] [phone] Stevan Roddyzeeshan, A 04/07/2025 Orders Only [facility] [address] [facility] [address] [place] [phone] Royal Lombardo MD 04/06/[address] [phone] Glendy Jiang NP 04/05/[address] [place] [address] Mateo Cuevas, EVE 03/29/2025 12:50 AM CDT - 03/29/2025 3:45 AM CDT Surgery [facility] Operating Room 1 [place] [phone] Gavin Chen, RIGHT FEMORAL AND RIGHT INGUINAL HERNIA REPAIR 03/29/2025 12:47 AM CDT Anesthesia Event [facility] Operating Room 1 [place] [phone] Vanessa Osorio MD Curless Marylu FerreiraJONELLE 03/28/2025 8:33 PM CDT - 04/02/2025 2:53 PM CDT Hospital Encounter [facility] 1 [place] [phone] Aaron Sorenson MD Renz, MD Gustavo Hills Matthew Justin, Incarcerated hernia (Primary Dx); SBO (small bowel obstruction) (HCC); Hiatal hernia; Severe protein-calorie malnutrition Discharge Disposition: Discharge to home, home health skilled care 03/23/2025 Telephone [facility] [address] [facility] Medical Office Building [address], [address] [place] [address] Dayami Rain RN 03/11/2025 11:30 AM CDT Office Visit [facility] Surgery [address] [facility] [address] [place] [address] Royal Lombardo MD Hiatal hernia (Primary Dx) 03/11/2025 Orders Only [facility] [address] [facility] [address] [place] [phone] Royal Lombardo MD Hiatal hernia (Primary Dx) 03/11/2025 Orders Only [facility] [address] [facility] Floor 5 [place] [phone] Ellie Calles NP 03/11/2025 Orders Only [facility] [address] [facility] Floor 5 [place] [address] Ellie Calles NP Malnutrition, unspecified type (Primary Dx) from Last 3 Months Surgical History Surgery Date Site/Laterality Comments HYSTERECTOMY HERNIA REPAIR Medical History Medical History Date Comments Hypertension Hypercholesteremia Hiatal hernia Family History Medical History Relation Name Comments Lung cancer Father Lung cancer Mother Lung cancer Sister Relation Name Status Comments Father Mother Sister Social History Tobacco Use Types Packs/Day Years Used Date Smoking Tobacco: Never Smokeless Tobacco: Never Tobacco Cessation:Counseling Given: Not Answered [facility] Utilities Answer Date Recorded In the past 12 months has [facility] [employer] gas, oil, or water [employer] threatened to shut off services in your [...] often do you attend chur ch or congregation services? 1 to 4 times per year 03/30/2025 Do you belong to any clubs o r organizations such as zoroastrian groups, unions, fraternal or athletic groups, or [...] money to buy more. Never true 03/30/20 Within the past 12 months, t he [...] any time in the past 12 m [facility], were you homeless or living in a correction (including now)? No 03/30/2025 Personal Safety Answer [...] on file Sexual Orientation Not on file Obstetrics History Last Filed Vital Signs Vital Sign Reading [...] 03/29/2025 6:00 AM CDT Plan of Treatment Health Maintenance Due Date Last Done Comments Depression Screening 1942 Osteoporosis Screening-Bone Density Scan 1942 Hepatitis B Screening 1960 Zoster Vaccine (1 of 2) 1992 Well Visit 65+ 2007 Covid-19 Vaccine (5 - 2023-2 5 season) 2024 10/05/2023, 08/30/2021, 01/30/2021, Additional history exists Influenza Vaccine (#1) 2025 , 09/09/2023, 09/06/2022, Additional history exists Fall Risk Assessment 04/02/2026 04/02/2025 DTaP/Tdap/Td Vaccine (2 - Td or Tdap) 05/03/2027 05/03/2017 Pneumococcal vaccine 65+ Completed 08/12/2017, 08/11 Procedures Procedure Name Priority Date/Time Associated Diagnosis [...] 03/29/2025 2: 41 AM CDT Incarcerated hernia TX AN PROCEDURE PLACEHOLDER Routine 03/29/2025 1:21 AM CDT TX AN PROCEDURE PLACEHOLDER Routine 03/29/2025 1:21 AM CDT TX AN ELECTIVE ENDOTRACHEAL AIRWAY Routine 03/29/2025 1:21 AM CDT REPAIR INGUINAL HERNIA 03/29/2025 12:47 AM CDT Incarcerated hernia Case Notes [place] [id number] XR ABDOMEN AP 1 VIEW ED Urgent/IP Urgent 03/29/2025 12:16 AM CDT TROPONIN I HIGH-SENSITIVITY 2-HOUR Timed 03/28/2025 11:46 PM CDT TX CRITICAL CARE ILL/INJURED PATIENT INIT 30-74 MIN [...] of Race in Diagnosing Kidney Disease, JASN 202). The CKD-EPI equation should not be used for patients with unstable renal function and has not been validated in children and those over 70. Current interpretive data was last reviewed 2021. Blood 04/01/2025 9:21 PM CDT 04/01/2025 10:37 PM CDT us Gavin Chen DO LAB BLOOD ORDERABLES Fi nal Result [facility] Department [place] [address] * (ABNORMAL) Differential, auto (04/01/2025 9:21 PM CDT) Neutrophil abs 10.19(H) 1.50 - 6.50 K/cumm Imm gran abs 0.06 0.00 - 0.10 K/cumm [facility] Lymphocyte abs 0.28(L) 0.80 - 3.30 K/cumm [facility] Monocyte abs 0.98(H) 0.20 - 0.80 K/cumm [facility] Eosinophil abs 0.01 0.00 - 0.50 K/cumm [facility] Basophil abs 0.02 0.00 - 0.10 K/cumm [facility] Neutrophil pct 88.3 % [facility] Comment: Interpretive Data Percent cell count reference ranges are not reported, since discordance with absolute values may lead to misinterpretation of CBC data. Current Interpretive Data was last revised on 2018. Imm gran pct 0.5 % [facility] Comment: Interpretive Data Percent cell count reference ranges are not reported, since discordance with absolute values may lead to misinterpretation of CBC data. Current Interpretive Data was last revised on 2018. Lymphocyte pct 2.4 % [facility] [place] Comment: Interpretive Data Percent cell count reference ranges are not reported, since discordance with absolute values may lead to misinterpretation of CBC data. Current Interpretive Data was last revised on 2018. Monocyte pct 8.5 % [facility] Comment: Interpretive Data Percent cell count reference ranges are not reported, since discordance with absolute values may lead to misinterpretation of CBC data. Current Interpretive Data was last revised on 2018. Eosinophil pct 0.1 % [facility] Comment: Interpretive Data Percent cell count reference ranges are not reported, since discordance with absolute values may lead to misinterpretation of CBC data. Current Interpretive Data was last revised on 2018. Basophil pct 0.2 % [facility] Comment: Interpretive Data Percent cell count reference ranges are not reported, since discordance with absolute values may lead to misinterpretation of CBC data. Current Interpretive Data was last revised on 2018. Blood 04/01/2025 9:21 PM CDT 04/01/2025 10:37 PM CDT us Gavin Chen DO LAB BLOOD ORDERABLES Fi nal Result Performing Organization Address City/[facility]/ZIP Co de Phone Number [facility] Department [place] [employer] [place] [address] * (ABNORMAL) CBC with auto differential (04/01/2025 9:21 PM CDT) WBC 11.54(H) 3.80 - 9.90 K/cumm Hgb 10.8(L) 11.9 - 15.5 g/dL [facility] Hct 32.7(L) 35.6 - 45.5 % [facility] Plt 210 150 - 400 K/cumm [facility] MPV 10.0 9.1 - 12.3 fL [facility] RBC 3.60(L) 3.90 - 5.20 M/cumm [facility] MCV 90.8 81.3 - 96.4 fL [facility] MCH 30.0 27.1 - 33.3 pg [facility] MCHC 33.0 32.3 - 35.7 g/dL [facility] RDW CV 13.8 11.1 - 14.9 % [facility] RDW SD 46.3 35.7 - 48.1 fL [facility] NRBC abs 0.00 0.00 - 0.01 K/cumm [facility] Blood 04/01/2025 9:21 PM CDT 04/01/2025 10:37 PM CDT us Gavin Chen DO LAB BLOOD ORDERABLES Fi nal Result [facility] [place] [address] * Phosphorus (04/01/2025 9:21 PM CDT) Pathologist [facility] Phosphorus, pl 3.5 2.3 - 4.5 mg/dL Blood 04/01/2025 9:21 PM CDT 04/01/2025 10:37 PM CDT Gavin Chen DO LAB BLOOD ORDERABLES Fi nal Result Performing Organization Address [facility] de Phone Number [facility] Department [place] [address] * Magnesium (04/01/2025 9:21 PM CDT) Pathologist [facility] Magnesium 1.8 1.4 - 2.5 mg/dL Blood 04/01/2025 9:21 PM CDT 04/01/2025 10:37 PM CDT Gavin Chen DO LAB BLOOD ORDERABLES Fi nal Result Performing Organization Address [facility] Phone Number [facility] [place] [address] * (ABNORMAL) Hepatic function panel (04/01/2025 9:21 PM CDT) Pathologist [facility] Bilirubin, total 0.3 0.1 - 1.2 mg/dL Bilirubin, direct 0.2 0.1 - 0.3 mg/dL [facility] Protein, pl 5.5(L) 6.5 - 8.5 g/dL [facility] Albumin 3.2(L) 3.5 - 5.0 g/dL [facility] Alk phos 42 40 - 130 Units/L [facility] [place] ALT 18 7 - 45 Units/L [facility] [place] AST 24 10 - 45 Units/L [facility] Blood 04/01/2025 9:21 PM CDT 04/01/2025 10:37 PM CDT Rhina Cox OPERATIONS AND MAINTENANCE TECHNICIAN LAB BLOOD ORDERABLES Final Result Performing Organization Address [facility] Co de Phone Number [facility] Department [place] [address] * (ABNORMAL) Basic metabolic panel (04/01/2025 9:21 PM CDT) Sodium 140 135 - 145 mmol/L Potassium, pl 3.6 3.3 - 4.9 mmol/L [facility] Chloride 104 97 - 110 mmol/L [facility] CO2 28 22 - 32 mmol/L [facility] Anion gap 8 2 - 15 mmol/L [facility] BUN 13 6 - 25 mg/dL [facility] Creatinine 0.49(L) 0.60 - 1.10 mg/dL [facility] Glucose 114 70 - 199 mg/dL [facility] Comment: Interpretive Data Fasting glucose >/= [...] 2022. Calcium 8.6 8.5 - 10.3 mg/dL [facility] Blood 04/01/2025 9:21 PM CDT 04/01/2025 10:37 PM CDT us Gavin Chen DO LAB BLOOD ORDERABLES Fi nal Result [facility] Department [place] [address] * XR Chest 1 View (03/31/2025 7:43 [...] obscured. Electronically signed by: Yosvany Murphy M.D. Gavin Chen DO IMG XR PROCEDURES Final Result * eGFR (03/31/2025 6:48 PM CDT) eGFR >90 >=60 mL/min/1. 73 [...] DO LAB BLOOD ORDERABLES Fi nal Result [facility] Department [place] [address] * (ABNORMAL) Differential, auto (03/31/2025 6:48 PM CDT) Neutrophil abs 7.23(H) 1.50 - 6.50 K/cumm Imm gran abs 0.03 0.00 - 0.10 K/cumm [facility] Lymphocyte abs 0.52(L) 0.80 - 3.30 K/cumm [facility] Monocyte abs 0.74 0.20 - 0.80 K/cumm [facility] Eosinophil abs 0.09 0.00 - 0.50 K/cumm [facility] Basophil abs 0.01 0.00 - 0.10 K/cumm [facility] Neutrophil pct 84.0 % [facility] Comment: Interpretive Data Percent cell count reference ranges are not reported, since discordance with absolute values may lead to misinterpretation of CBC data. Current Interpretive Data was last revised on 2018. Imm gran pct 0.3 % [facility] Comment: Interpretive Data Percent cell count reference ranges are not reported, since discordance with absolute values may lead to misinterpretation of CBC data. Current Interpretive Data was last revised on 2018. Lymphocyte pct 6.0 % [facility] Comment: Interpretive Data Percent cell count reference ranges are not reported, since discordance with absolute values may lead to misinterpretation of CBC data. Current Interpretive Data was last revised on 2018. Monocyte pct 8.6 % [facility] Comment: Interpretive Data Percent cell count reference ranges are not reported, since discordance with absolute values may lead to misinterpretation of CBC data. Current Interpretive Data was last revised on 2018. Eosinophil pct 1.0 % [facility] Comment: Interpretive Data Percent cell count reference ranges are not reported, since discordance with absolute values may lead to misinterpretation of CBC data. Current Interpretive Data was last revised on 2018. Basophil pct 0.1 % [facility] Comment: Interpretive Data Percent cell count reference ranges are not reported, since discordance with absolute values may lead to misinterpretation of CBC data. Current Interpretive Data was last revised on 2018. Blood 03/31/2025 6:48 PM CDT 03/31/2025 7:06 PM CDT Gavin Chen DO LAB BLOOD ORDERABLES Fi nal Result Performing Organization Address City/[facility]/ZIP Co de Phone Number [facility] Department [place] [address] * (ABNORMAL) CBC with auto differential (03/31/2025 6:48 PM CDT) WBC 8.62 3.80 - 9.90 K/cumm Hgb 12.0 11.9 - 15.5 g/dL [facility] Hct 37.4 35.6 - 45.5 % [facility] Plt 224 150 - 400 K/cumm [facility] MPV 9.6 9.1 - 12.3 fL [facility] RBC 4.08 3.90 - 5.20 M/cumm [facility] MCV 91.7 81.3 - 96.4 fL [facility] MCH 29.4 27.1 - 33.3 pg [facility] MCHC 32.1(L) 32.3 - 35.7 g/dL [facility] RDW CV 13.9 11.1 - 14.9 % [facility] RDW SD 46.9 35.7 - 48.1 fL [facility] NRBC abs 0.00 0.00 - 0.01 K/cumm [facility] Blood 03/31/2025 6:48 PM CDT 03/31/2025 7:06 PM CDT Gavin Chen DO LAB BLOOD ORDERABLES Fi nal Result Performing Organization Address City/[facility]/[place] [address] * (ABNORMAL) Prealbumin (03/31/2025 6:48 PM CDT) [facility] Prealbumin 10.0(L) 20.0 - 40.0 mg/dL Blood 03/31/2025 6:48 PM CDT 03/31/2025 7:06 PM CDT Gavin Chen DO LAB BLOOD ORDERABLES Fi nal Result Performing Organization Address City/State/[facility] [place] [address] * Phosphorus (03/31/2025 6:48 PM CDT) [facility] Phosphorus, pl 2.8 2.3 - 4.5 mg/dL Blood 03/31/2025 6:48 PM CDT 03/31/2025 6:55 PM CDT Gavin Chen DO LAB BLOOD ORDERABLES Fi nal Result Performing Organization Address City/[facility]/[place] [address] * Magnesium (03/31/2025 6:48 PM CDT) [facility] Magnesium 1.9 1.4 - 2.5 mg/dL Blood 03/31/2025 6:48 PM CDT 03/31/2025 6:55 PM CDT Gavin Chen DO LAB BLOOD ORDERABLES Fi nal Result Performing Organization Address City/[facility] [place] [address] * Albumin (03/31/2025 6:48 PM CDT) [facility] Albumin 3.6 3.5 - 5.0 g/dL Comment:Repeated and Verifie d Blood 03/31/2025 6:48 PM CDT 03/31/2025 6:55 PM CDT us Gavin Chen DO LAB BLOOD ORDERABLES Fi nal Result [facility] Department [place] [address] * (ABNORMAL) Basic metabolic panel (03/31/2025 6:48 PM CDT) Pathologist [facility] Sodium 147(H) 135 - 145 mmol/L Potassium, pl 3.5 3.3 - 4.9 mmol/L [facility] Chloride 105 97 - 110 mmol/L [facility] CO2 31 22 - 32 mmol/L [facility] Anion gap 11 2 - 15 mmol/L [facility] BUN 8 6 - 25 mg/dL [facility] Creatinine 0.37(L) 0.60 - 1.10 mg/dL [facility] Glucose 122 70 - 199 mg/dL [facility] Comment: Interpretive Data Fasting glucose >/= [...] 2022. Calcium 8.3(L) 8.5 - 10.3 mg/dL [facility] Blood 03/31/2025 6:48 PM CDT 03/31/2025 6:55 PM CDT us Gavin Chen DO LAB BLOOD ORDERABLES Fi nal Result Performing Organization Address [facility]/ZIP Co de Phone Number [facility] Department [place] [address] * (ABNORMAL) Urinalysis reflex to microscopic (03/31/2025 3:30 PM CDT) Color, ur Straw Yellow Clarity, ur Clear Clear [facility] Specific gravity, ur 1.014 1.003 - 1.030 [facility] pH, urine 7.5 [facility] Comment: Interpretive Data U rine pH is affected by diet, medications, systemic acid-base disturbances, and renal tubular function. pH may affect urinary stone formation. For example, urine pH below 6.0 may help reduce the tendency for calcium phosphate stones and pH greater than 6.0 may reduce the tendency for uric acid stone formation. Source: [facility] Current Interpretive Data was last revised on 2017 Protein, ur ql Negative Negative [facility] Glucose, ur ql Negative Negative [facility] [place] Ketones, ur 1+(A) Negative [facility] [place] Bilirubin, ur Negative Negative [facility] Blood, ur Negative Negative [facility] Urobilinogen, ur <2.0 <2.0 mg/dL [facility] Nitrite, ur Negative Negative [facility] [place] [facility] Leukocyte esterase, ur Negative Negative [facility] [place] UA reflex comment Reflex conditions for microscopic UA not met. [facility] Urine 03/31/2025 3:30 PM CDT 03/31/2025 3:41 PM CDT Rhina Cox NP LAB URINE ORDERABLES Final Result [facility] Department [place] [address] * XR Abdomen 1 View AP (03/30/2025 [...] noted. Electronically signed by: Volodymyr Cooper M.D. Glendy Jiang OPERATIONS AND MAINTENANCE TECHNICIAN IMG XR PROCEDURES Final Re sult * eGFR (03/30/2025 12:03 AM CDT) eGFR >90 >=60 mL/min/1. 73 [...] of Race in Diagnosing Kidney Disease, JASN 202). The CKD-EPI equation should not be used for patients with unstable renal function and has not been validated in children and those over 70. Current interpretive data was last reviewed 2021. Blood 03/30/2025 12:0 3 AM CDT 03/30/2025 12:47 AM CDT Pierre Chen MD LAB BLOOD ORDERABLES Fi nal Result [facility] Department [place] [address] * (ABNORMAL) Differential, auto (03/30/2025 12:03 AM CDT) Neutrophil abs 7.54(H) 1.50 - 6.50 K/cumm Imm gran abs 0.03 0.00 - 0.10 K/cumm [facility] Lymphocyte abs 0.63(L) 0.80 - 3.30 K/cumm [facility] Monocyte abs 1.24(H) 0.20 - 0.80 K/cumm [facility] Eosinophil abs 0.03 0.00 - 0.50 K/cumm [facility] Basophil abs 0.01 0.00 - 0.10 K/cumm [facility] Neutrophil pct 79.6 % [facility] Comment: Interpretive Data Percent cell count reference ranges are not reported, since discordance with absolute values may lead to misinterpretation of CBC data. Current Interpretive Data was last revised on 2018. Imm gran pct 0.3 % [facility] Comment: Interpretive Data Percent cell count reference ranges are not reported, since discordance with absolute values may lead to misinterpretation of CBC data. Current Interpretive Data was last revised on 2018. Lymphocyte pct 6.6 % [facility] Comment: Interpretive Data Percent cell count reference ranges are not reported, since discordance with absolute values may lead to misinterpretation of CBC data. Current Interpretive Data was last revised on 2018. Monocyte pct 13.1 % [facility] Comment: Interpretive Data Percent cell count reference ranges are not reported, since discordance with absolute values may lead to misinterpretation of CBC data. Current Interpretive Data was last revised on 2018. Eosinophil pct 0.3 % [facility] Comment: Interpretive Data Percent cell count reference ranges are not reported, since discordance with absolute values may lead to misinterpretation of CBC data. Current Interpretive Data was last revised on 2018. Basophil pct 0.1 % [facility] Comment: Interpretive Data Percent cell count reference ranges are not reported, since discordance with absolute values may lead to misinterpretation of CBC data. Current Interpretive Data was last revised on 2018. Blood 03/30/2025 12:0 3 AM CDT 03/30/2025 12:47 AM CDT us Pierre Chen MD LAB BLOOD ORDERABLES Fi nal Result Performing Organization Address City/[facility]/ZIP Co de Phone Number [facility] Department of [place] [id number] * (ABNORMAL) CBC with auto differential (03/30/2025 12:03 AM CDT) WBC 9.48 3.80 - 9.90 K/cumm Hgb 11.5(L) 11.9 - 15.5 g/dL [facility] Hct 35.2(L) 35.6 - 45.5 % [facility] Plt 203 150 - 400 K/cumm [facility] MPV 10.1 9.1 - 12.3 fL [facility] RBC 3.84(L) 3.90 - 5.20 M/cumm [facility] MCV 91.7 81.3 - 96.4 fL [facility] MCH 29.9 27.1 - 33.3 pg [facility] MCHC 32.7 32.3 - 35.7 g/dL [facility] RDW CV 14.5 11.1 - 14.9 % [facility] RDW SD 48.2(H) 35.7 - 48.1 fL [facility] NRBC abs 0.00 0.00 - 0.01 K/cumm [facility] Blood 03/30/2025 12:0 3 AM CDT 03/30/2025 12:47 AM CDT us Pierre Chen MD LAB BLOOD ORDERABLES Fi nal Result Performing Organization Address City/[facility]/ZIP Co de Phone Number [facility] [place] [place] [address] * (ABNORMAL) Phosphorus (03/30/2025 12:03 AM CDT) Pathologist [facility] Phosphorus, pl 1.7(L) 2.3 - 4.5 mg/dL Blood 03/30/2025 12:0 3 AM CDT 03/30/2025 12:47 AM CDT Pierre Chen MD LAB BLOOD ORDERABLES Fi nal Result Performing Organization Address [facility] [place] [address] * Magnesium (03/30/2025 12:03 AM CDT) [facility] Magnesium 2.1 1.4 - 2.5 mg/dL Blood 03/30/2025 12:0 3 AM CDT 03/30/2025 12:47 AM CDT Pierre Chen MD LAB BLOOD ORDERABLES Fi nal Result Performing Organization Address [facility] [place] [address] * (ABNORMAL) Basic metabolic panel (03/30/2025 12:03 AM CDT) [facility] Sodium 145 135 - 145 mmol/L Potassium, pl 4.4 3.3 - 4.9 mmol/L [facility] Comment:Repeated and Verifie d Chloride 109 97 - 110 mmol/L [facility] Comment:Repeated and Verifie d CO2 31 22 - 32 mmol/L [facility] Anion gap 5 2 - 15 mmol/L [facility] BUN 12 6 - 25 mg/dL [facility] Creatinine 0.45(L) 0.60 - 1.10 mg/dL [facility] Glucose 132 70 - 199 mg/dL [facility] Comment: Interpretive Data Fasting glucose >/= [...] 2022. Calcium 8.1(L) 8.5 - 10.3 mg/dL [facility] Blood 03/30/2025 12:0 3 AM CDT 03/30/2025 12:47 AM CDT Pierre Chen MD LAB BLOOD ORDERABLES Fi nal Result [facility] Department [place] [address] * eGFR (03/29/2025 8:54 PM CDT) eGFR [...] of Race in Diagnosing Kidney Disease, JASN 202). The CKD-EPI equation should not be used for patients with unstable renal function and has not been validated in children and those over 70. Current interpretive data was last reviewed 2021. Blood 03/29/2025 8:54 PM CDT 03/29/2025 9:08 PM CDT Gavin Chen DO LAB BLOOD ORDERABLES Ed ited Result - Final Performing Organization Address City/[facility]/ZIP Co de Phone Number [facility] [place] [address] * Critical Result Callback Chemistry (03/29/2025 8:54 PM CDT) Date Notified [id number] Time Notified 2199 [facility] TestName K, Ca, Glucose [facility] Called/Read Back Telephone report made to: Alondra Horan RN on 03/29/2025 22:01:04 CDT by . [facility] Credentials RN [facility] Called By [facility] Blood 03/29/2025 8:54 PM CDT 03/29/2025 9:08 PM CDT us Gavin Chen DO LAB BLOOD ORDERABLES Fi nal Result Performing Organization Address [facility]/ZIP Co de Phone Number [facility] [place] [address] * (ABNORMAL) CBC without differential (03/29/2025 8:54 PM CDT) WBC 7.42 3.80 - 9.90 K/cumm Hgb 8.9(L) 11.9 - 15.5 g/dL [facility] Hct 27.1(L) 35.6 - 45.5 % [facility] Plt 146(L) 150 - 400 K/cumm [facility] MPV 9.5 9.1 - 12.3 fL [facility] RBC 2.93(L) 3.90 - 5.20 M/cumm [facility] MCV 92.5 81.3 - 96.4 fL [facility] MCH 30.4 27.1 - 33.3 pg [facility] MCHC 32.8 32.3 - 35.7 g/dL [facility] RDW CV 14.3 11.1 - 14.9 % [facility] RDW SD 48.0 35.7 - 48.1 fL [facility] NRBC abs 0.00 0.00 - 0.01 K/cumm [facility] Blood 03/29/2025 8:54 PM CDT 03/29/2025 9:09 PM CDT us Gavin Orellana Gustavo DO LAB BLOOD ORDERABLES Fi nal Result Performing Organization Address [facility] Co de Phone Number [facility] Department [place] [address] * Prealbumin (03/29/2025 8:54 PM CDT) Prealbumin See Comment 20.0 - 40.0 mg/dL Comment:Credited: Sample inv estigated and is suggestive of an improper collection (e.g., IV fluid contamination, improper tube type). Deleted at the Request of Alondra Horan RN on 03/29/2025 22:04:04 CDT by . Blood 03/29/2025 8:54 PM CDT 03/29/2025 9:08 PM CDT us Glendy Jiang OPERATIONS AND MAINTENANCE TECHNICIAN LAB BLOOD ORDERABLES Edite d Result - Final [facility] Department [place] [address] * Phosphorus (03/29/2025 8:54 PM CDT) Phosphorus, [...] d Result - Final Performing Organization Address [facility] [place] [address] * Magnesium (03/29/2025 8:54 PM CDT) Magnesium See Comment 1.4 - 2.5 mg/dL Comment:Credited: Sample inv estigated and is suggestive of an improper collection (e.g., IV fluid contamination, improper tube type). Deleted at the Request of Alondra Horan RN on 03/29/2025 22:04:04 CDT by . Blood 03/29/2025 8:54 PM CDT 03/29/2025 9:08 PM CDT us Glendy Jiang NP LAB BLOOD ORDERABLES Edite d Result - Final Performing Organization Address [facility] [place] [address] * Albumin (03/29/2025 8:54 PM CDT) Albumin [...] BLOOD ORDERABLES Edite d Result - Final [facility] Department [place] [address] * Basic metabolic panel (03/29/2025 8:54 PM CDT) Sodium See Comment 135 - 145 mmol/L Comment:Credited: Sample inv estigated and is suggestive of an improper collection (e.g., IV fluid contamination, improper tube type). Deleted at the Request of Alondra Horan RN on 03/29/2025 22:04:04 CDT by . Potassium, pl See Comment 3.3 - 4.9 mmol/L [facility] Comment: Reviewed Credited: Sample investigated and is suggestive of an improper collection (e.g., IV fluid contamination, improper tube type). Deleted at the Request of Alondra Horan RN on 03/29/2025 22:04:04 CDT by . Chloride See Comment 97 - 110 mmol/L [facility] Comment: Repeated and Verified Credited: Sample investigated and is suggestive of an improper collection (e.g., IV fluid contamination, improper tube type). Deleted at the Request of Alondra Horan RN on 03/29/2025 22:04:04 CDT by . CO2 See Comment 22 - 32 mmol/L [facility] Comment:Credited: Sample inv estigated and is suggestive of an improper collection (e.g., IV fluid contamination, improper tube type). Deleted at the Request of Alondra Horan RN on 03/29/2025 22:04:04 CDT by . Anion gap See Comment 2 - 15 mmol/L [facility] Comment: Reviewed Credited: Sample investigated and is suggestive of an improper collection (e.g., IV fluid contamination, improper tube type). Deleted at the Request of Alondra Horan RN on 03/29/2025 22:04:04 CDT by . BUN See Comment 6 - 25 mg/dL [facility] Comment:Credited: Sample inv estigated and is suggestive of an improper collection (e.g., IV fluid contamination, improper tube type). Deleted at the Request of Alondra Horan RN on 03/29/2025 22:04:04 CDT by . Creatinine See Comment 0.60 - 1.10 mg/dL [facility] Comment:Credited: Sample inv estigated and is suggestive of an improper collection (e.g., IV fluid contamination, improper tube type). Deleted at the Request of Alondra Horan RN on 03/29/2025 22:04:04 CDT by . Glucose See Comment 70 - 199 mg/dL [facility] Comment: Interpretive Data Fasting glucose >/= 126 [...] Calcium See Comment 8.5 - 10.3 mg/dL [facility] Comment: Reviewed Credited: Sample investigated and is suggestive of an improper collection (e.g., IV fluid contamination, improper tube type). Deleted at the Request of Alondra Horan RN on 03/29/2025 22:04:04 CDT by . Blood 03/29/2025 8:54 PM CDT 03/29/2025 9:08 PM CDT us Gavin Chen DO LAB BLOOD ORDERABLES Ed ited Result - Final [facility] Department [place] [address] * POCT glucose (03/29/2025 2:33 PM CDT) [facility] Glucose, POC 135 70 - 199 mg/dL Blood 03/29/2025 2:33 PM CDT 03/29/2025 2:33 PM CDT us Gavin Chen DO LAB POCT ORDERABLES - D EVICE Final Result [facility] [place] [address] * eGFR (03/29/2025 8:44 AM CDT) [facility] eGFR >90 >=60 mL/min/1. 73 m2 Comment: [...] 03/29/2025 8:59 AM CDT us Glendy Jiang OPERATIONS AND MAINTENANCE TECHNICIAN LAB BLOOD ORDERABLES Final Result [facility] Department [place] [address] * (ABNORMAL) Differential, auto (03/29/2025 8:44 AM CDT) Neutrophil abs 9.68(H) 1.50 - 6.50 K/cumm Imm gran abs 0.02 0.00 - 0.10 K/cumm [facility] Lymphocyte abs 0.39(L) 0.80 - 3.30 K/cumm [facility] Monocyte abs 1.34(H) 0.20 - 0.80 K/cumm [facility] Eosinophil abs 0.00 0.00 - 0.50 K/cumm [facility] Basophil abs 0.01 0.00 - 0.10 K/cumm [facility] Neutrophil pct 84.6 % [facility] Comment: Interpretive Data Percent cell count reference ranges are not reported, since discordance with absolute values may lead to misinterpretation of CBC data. Current Interpretive Data was last revised on 2018. Imm gran pct 0.2 % [facility] Comment: Interpretive Data Percent cell count reference ranges are not reported, since discordance with absolute values may lead to misinterpretation of CBC data. Current Interpretive Data was last revised on 2018. Lymphocyte pct 3.4 % [facility] Comment: Interpretive Data Percent cell count reference ranges are not reported, since discordance with absolute values may lead to misinterpretation of CBC data. Current Interpretive Data was last revised on 2018. Monocyte pct 11.7 % [facility] Comment: Interpretive Data Percent cell count reference ranges are not reported, since discordance with absolute values may lead to misinterpretation of CBC data. Current Interpretive Data was last revised on 2018. Eosinophil pct 0.0 % [facility] Comment: Interpretive Data Percent cell count reference ranges are not reported, since discordance with absolute values may lead to misinterpretation of CBC data. Current Interpretive Data was last revised on 2018. Basophil pct 0.1 % [facility] Comment: Interpretive Data Percent cell count reference ranges are not reported, since discordance with absolute values may lead to misinterpretation of CBC data. Current Interpretive Data was last revised on 2018. Blood 03/29/2025 8:44 AM CDT 03/29/2025 9:00 AM CDT Glendy Jiang OPERATIONS AND MAINTENANCE TECHNICIAN LAB BLOOD ORDERABLES Final Result Performing Organization Address [facility]/ZIP Co de Phone Number [facility] Department [place] [address] * (ABNORMAL) CBC with auto differential (03/29/2025 8:44 AM CDT) Pathologist [facility] WBC 11.44(H) 3.80 - 9.90 K/cumm Hgb 11.2(L) 11.9 - 15.5 g/dL [facility] Comment:Hemoglobin delta due to surgical procedure. Hct 33.3(L) 35.6 - 45.5 % [facility] Plt 177 150 - 400 K/cumm [facility] MPV 9.4 9.1 - 12.3 fL [facility] RBC 3.68(L) 3.90 - 5.20 M/cumm [facility] MCV 90.5 81.3 - 96.4 fL [facility] MCH 30.4 27.1 - 33.3 pg [facility] MCHC 33.6 32.3 - 35.7 g/dL [facility] RDW CV 14.0 11.1 - 14.9 % [facility] RDW SD 46.7 35.7 - 48.1 fL [facility] NRBC abs 0.00 0.00 - 0.01 K/cumm [facility] Blood 03/29/2025 8:44 AM CDT 03/29/2025 9:00 AM CDT Glendy Jiang OPERATIONS AND MAINTENANCE TECHNICIAN LAB BLOOD ORDERABLES Final Result [facility] Department [place] [address] * (ABNORMAL) Basic metabolic panel (03/29/2025 8:44 AM CDT) Pathologist [facility] Sodium 143 135 - 145 mmol/L Potassium, pl 3.2(L) 3.3 - 4.9 mmol/L [facility] Chloride 102 97 - 110 mmol/L [facility] CO2 30 22 - 32 mmol/L [facility] Anion gap 11 2 - 15 mmol/L [facility] BUN 14 6 - 25 mg/dL [facility] Creatinine 0.46(L) 0.60 - 1.10 mg/dL [facility] Glucose 126 70 - 199 mg/dL [facility] Comment: Interpretive Data Fasting glucose >/= [...] 2022. Calcium 8.0(L) 8.5 - 10.3 mg/dL [facility] Blood 03/29/2025 8:44 AM CDT 03/29/2025 8:59 AM CDT us Glendy Jiang NP LAB BLOOD ORDERABLES Final Result [facility] Department [place] [address] * XR Abdomen 1 View AP (03/29/2025 [...] by: Patito Peguero M.D. us Glendy Jiang OPERATIONS AND MAINTENANCE TECHNICIAN IMG XR PROCEDURES Final Re sult * Surgical pathology (03/29/2025 2:41 AM CDT) Tissue (Small bowel, resection non- tumor) 03/29/2025 2:41 AM CDT Comment:A.) Small bowel Narrative PATHOLOGY [facility] - 04/01/2025 3:13 PM CDT EPIC results best viewed via link to PDF [facility] [place] [address] Note to Patients: This report may contain [...] Gender: F : 1940 (Age: 84) Address: [address] [place] [id number] Hospital #: [id number] Taken:03/29/2025 Received:03/29/2025 Reported: 04/01/2025 Patient Type: [facility] Inpatient Service: Emergency Location: [place] [address] Physician(s): Gavin Chen D.O. Dr. Nicolás Azul M.D. Diagnosis: Small bowel, resection - Small [...] closest margin. There are no focal masses. Atomic Physics Teacher sections are submitted as follows: A1 Resection margin closest to the area of stricture, shaved A2 Opposite resection margin, shaved A3 Longitudinal sections from the area of stricture including ulcerated bowel mucosa Jar 1. bao2/03/30/2025 11:59 PA(s): WILL Barajas (ASCP)CM By this signature, I attest that the above diagnosis is based upon my personal examination of the slides(and/or other material). Addenda/Procedures The performance characteristics of some immunohistochemical stains, fluorescence in-situ hybridization tests and immunophenotyping by flow cytometry cited in this report (if any) were determined by the Surgical Pathology and Flow Cytometry Departments at [facility] as part of an ongoing software quality specialist program and in compliance with federally mandated [...] Surgical Pathology and Flow Cytometry Departments of [facility]. It has not been cleared or approved by the U. S. Food and Drug Administration. IMAGES AND SCANNED DOCUMENTS, IF INCLUDED, ONLY VIEWABLE IN PDF VERSION OF REPORT Gavin Chen DO LAB PATHOLOGY ORDERABLE S Final Result [facility] 3rd Floor [place], [place] [phone] * TX AN PROCEDURE PLACEHOLDER (03/29/2025 1:21 AM CDT) [...] MD ANESTHESIA ORDERABLES Final Resu lt * TX AN ELECTIVE ENDOTRACHEAL AIRWAY, TX AN PROCEDURE PLACEHOLDER (03/29/2025 1:21 AM CDT) Marylu Spencer CRNA - 03/29/2025 1:21 AM CDT Marylu Ramires CRNA 03/29/2025 1:21 AM Airway Patient location: OR Urgency: elective Indications for airway management: anesthesia Difficult airway: no Staff: Supervising provider: Vanessa Osorio MD Placed by: JONELLE: Marylu Ramires CRNA Emergent airway documentation: Risks [...] 2020. Trop I hs delta 0 ng/L [facility] Trop I hs interp Insignificant [facility] Blood 03/28/2025 11:4 6 PM CDT 03/29/2025 12:42 AM CDT Flo Whitaker MD LAB BLOOD ORDERABLES Final Result [facility] Department [place] [address] * [place] CRITICAL CARE ILL/INJURED PATIENT INIT 30-74 MIN [...] it. Electronically signed by: Becki Daigle M.D. us Flo Whitaker MD IMG CT PROCEDURES Final Res ult * POCT lactate (03/28/2025 9:46 PM CDT) Lactate POC i-STAT 1.1 0.7 - 2.0 mmol/L Blood 03/28/2025 9:46 PM CDT 03/28/2025 9:46 PM CDT Aaron Sorenson MD LAB POCT ORDE RABLES - DEVICE Final Result Performing Organization Address City/[facility] Co de Phone Number [facility] Department [place] [address] * ECG 12-LEAD (03/28/2025 9:36 PM CDT) Narrative [facility] - 03/28/2025 9:36 PM CDT Aaron Sorenson MD 03/28/2025 9:39 PM ECG 12 lead Date/Time: 03/28/2025 9:36 PM Performed by: Aaron Sorenson MD Authorized by: Flo Whitaker MD Comments: No prior available at time of interpretation. NSR w/ short [place]. Slight ST depression in inferolateral leads with no prior available to compare. No ST-elevation. Intervals are normal. Normal axis. us Flo Whitaker MD ECG ORDERABLES Final Resul t Performing Organization Address City/[facility]/ZIP Co de Phone Number [facility] * (ABNORMAL) Troponin I high-sensitivity series (baseline, 2hr, 4hr, 6hr) (03/28/2025 9:24 PM CDT) Trop I hs 22(H) <=17 ng/L Comment: Interpretive Data For further hscTnI resources including the diagnostic algorithm and an aid in interpretation, copy and paste this link: https://bjhlab.testcatalog.org/show/[email or web address] Current Interpretive Data last revised 2020. Blood 03/28/2025 9:24 PM CDT 03/28/2025 9:41 PM CDT us Flo Whitaker MD LAB BLOOD ORDERABLES Final Result [facility] Department [place] [address] * eGFR (03/28/2025 9:24 PM CDT) eGFR >90 >=60 mL/min/1. 73 [...] BLOOD ORDERABLES Final Result [facility] Department [place] [address] * (ABNORMAL) Differential, auto (03/28/2025 9:24 PM CDT) Neutrophil abs 13.17(H) 1.50 - 6.50 K/cumm Imm gran abs 0.09 0.00 - 0.10 K/cumm [facility] Lymphocyte abs 0.77(L) 0.80 - 3.30 K/cumm [facility] Monocyte abs 1.78(H) 0.20 - 0.80 K/cumm [facility] Eosinophil abs 0.01 0.00 - 0.50 K/cumm [facility] Basophil abs 0.03 0.00 - 0.10 K/cumm [facility] Neutrophil pct 83.0 % [facility] Comment: Interpretive Data Percent cell count reference ranges are not reported, since discordance with absolute values may lead to misinterpretation of CBC data. Current Interpretive Data was last revised on 2018. Imm gran pct 0.6 % [facility] [place] Comment: Interpretive Data Percent cell count reference ranges are not reported, since discordance with absolute values may lead to misinterpretation of CBC data. Current Interpretive Data was last revised on 2018. Lymphocyte pct 4.9 % [facility] Comment: Interpretive Data Percent cell count reference ranges are not reported, since discordance with absolute values may lead to misinterpretation of CBC data. Current Interpretive Data was last revised on 2018. Monocyte pct 11.2 % [facility] Comment: Interpretive Data Percent cell count reference ranges are not reported, since discordance with absolute values may lead to misinterpretation of CBC data. Current Interpretive Data was last revised on 2018. Eosinophil pct 0.1 % [facility] Comment: Interpretive Data Percent cell count reference ranges are not reported, since discordance with absolute values may lead to misinterpretation of CBC data. Current Interpretive Data was last revised on 2018. Basophil pct 0.2 % [facility] Comment: Interpretive Data Percent cell count reference ranges are not reported, since discordance with absolute values may lead to misinterpretation of CBC data. Current Interpretive Data was last revised on 2018. Blood 03/28/2025 9:24 PM CDT 03/28/2025 9:41 PM CDT Flo Whitaker MD LAB BLOOD ORDERABLES Final Result [facility] Department [place] [address] * (ABNORMAL) Pro B-type natriuretic peptide (03/28/2025 [...] et.al. Eur Heart J. 2006:27:330-337. 2. Lisa THRASHER, Enrike DUENAS. J. AM Amber Cardiol: Cardiovasc Imag. 2009;2: 216- 225. Interpretive Data Last Revised Date: 2018. Blood 03/28/2025 9:24 PM CDT 03/28/2025 9:41 PM CDT Flo Whitaker MD LAB BLOOD ORDERABLES Final Result Performing Organization Address City/[facility]/ZIP Co de Phone Number [facility] Department [place] [address] * (ABNORMAL) CBC with auto differential (03/28/2025 9:24 PM CDT) Pathologist [facility] WBC 15.85(H) 3.80 - 9.90 K/cumm Hgb 14.5 11.9 - 15.5 g/dL [facility] Hct 43.5 35.6 - 45.5 % [facility] Plt 274 150 - 400 K/cumm [facility] MPV 9.9 9.1 - 12.3 fL [facility] RBC 4.78 3.90 - 5.20 M/cumm [facility] MCV 91.0 81.3 - 96.4 fL [facility] MCH 30.3 27.1 - 33.3 pg [facility] MCHC 33.3 32.3 - 35.7 g/dL [facility] RDW CV 14.0 11.1 - 14.9 % [facility] RDW SD 46.7 35.7 - 48.1 fL [facility] NRBC abs 0.00 0.00 - 0.01 K/cumm [facility] Blood 03/28/2025 9:24 PM CDT 03/28/2025 9:41 PM CDT us Flo Whitaker MD LAB BLOOD ORDERABLES Final Result [facility] Department [place] [employer] [place] [address] * (ABNORMAL) Comprehensive metabolic panel (03/28/2025 9:24 PM CDT) Pathologist [facility] Sodium 142 135 - 145 mmol/L Potassium, pl 3.1(L) 3.3 - 4.9 mmol/L [facility] Comment:Hemolyzed; Potassium value may be falsely elevated by as much as 0.3-0.5 mmol/L. Suggest redraw and reanalysis. Chloride 101 97 - 110 mmol/L [facility] CO2 31 22 - 32 mmol/L [facility] Anion gap 10 2 - 15 mmol/L [facility] BUN 20 6 - 25 mg/dL [facility] Creatinine 0.50(L) 0.60 - 1.10 mg/dL [facility] Glucose 144 70 - 199 mg/dL [facility] Comment: Interpretive Data Fasting glucose >/= [...] 2022. Calcium 9.2 8.5 - 10.3 mg/dL [facility] Bilirubin, total 0.5 0.1 - 1.2 mg/dL [facility] Protein, pl 6.5 6.5 - 8.5 g/dL [facility] Albumin 4.0 3.5 - 5.0 g/dL [facility] Alk phos 46 40 - 130 Units/L [facility] ALT 18 7 - 45 Units/L [facility] AST 26 10 - 45 Units/L [facility] Comment:Hemolyzed; result ma y be falsely elevated Blood 03/28/2025 9:24 PM CDT 03/28/2025 9:41 PM CDT Flo Whitaker MD LAB BLOOD ORDERABLES Final Result [facility] Department [place] [address] from Last 3 Months Insurance MEDICARE [facility] MEDICARE SUPPLEMENT MEDICARE [facility] MEDICARE SUPPLEMENT Advance Directives For more information, please contact: [phone] * LIMITED - No CPR (Latest Code Status on File) Date Activated Date Inactivated Comments 03/29/2025 6:12 AM 04/02/2025 6:57 PM Care Teams [employer] Recruiter Relationship Specialty Start Date End Date Nicolás Azul MD [id number] [place] [id number] PCP - General Internal Medicine 02/11/25
[2025-06-05 13:25] LABS: Estimated Glomerular Filt Rate > 60
== END 2025-06-05 12:09 | disposition home or self-care (01) ==
PROVIDERS: PCP Internal Medicine; Visit Provider Urology
DX: R31.0 Gross hematuria (principal); R93.89 Abnormal findings on diagnostic imaging of other specified body structures
CPT/HCPCS: 74178; Q9967